=== PATIENT | female | born 1950 | race Caucasian/White ===

== ENCOUNTER → 2018-08-24 10:54 | Outpatient (CLI) | payer MEDICARE, OTHER, SELFPAY ==
--- NOTE | 2018-08-24 | DI.MG.S_ITS ---
BILATERAL DIGITAL SCREENING MAMMOGRAM 3D/2D WITH CAD: 08/24/2018 CLINICAL: Routine screening. Personal history of left breast cancer. Comparison is made to exams dated: 07/30/2017 mammogram, 07/28/2016 mammogram, and 07/26/2015 mammogram - [facility]. The tissue of both breasts is heterogeneously dense. This may lower the sensitivity of mammography. Current study was also evaluated with a Computer Aided Detection (CAD) system. There are benign post operative findings in the left breast. There also are benign biopsy clips in the left breast. No significant masses, calcifications, or other findings are seen in either breast. There has been no significant interval change. IMPRESSION: There is no mammographic evidence of malignancy. A 1 year screening mammogram is recommended. This exam was interpreted at Station ID: [id number]. NOTE: For mammograms, a report in lay terms will be sent to the patient. Approximately 15% of breast malignancies will not be visualized mammographically. In the management of a palpable breast mass, a negative mammogram must not discourage biopsy of a clinically suspicious lesion. Electronically Signed By: Kymberly reyes/scout:08/24/2018 11:18:55 letter sent: Normal Exam ACR BI-RADS Category 2: Benign Finding(s) 3342F
== END ==
PROVIDERS: Family Provider Specialist; PCP Internal Medicine; Visit Provider Internal Medicine
DX: Z12.31 Encounter for screening mammogram for malignant neoplasm of breast (principal); Z85.3 Personal history of malignant neoplasm of breast
CPT/HCPCS: 77063; 77067

== ENCOUNTER → 2018-08-31 12:56 | Outpatient (CLI) | payer MEDICARE, OTHER, SELFPAY | PROVIDERS: Family Provider Specialist; PCP Internal Medicine; Visit Provider Internal Medicine | DX: M81.0 Age-related osteoporosis without current pathological fracture (principal); Z82.62 Family history of osteoporosis; Z78.0 Asymptomatic menopausal state; Z85.3 Personal history of malignant neoplasm of breast | CPT/HCPCS: 77080 ==

== ENCOUNTER 2018-09-05 10:30 | Outpatient (RCR) | payer MEDICARE, OTHER, SELFPAY ==
--- NOTE | 2018-05-19 16:35 | PT.OIE ---
Current Diagnoses Muscle weakness (generalized) (05/19/18) Cystocele, unspecified (05/19/18) Other reduced mobility (05/19/18) Provider Visit Care Team Role Provider Type Dez Hill MD Primary Care Provider Physician Specialty: Internal Medicine Address: [address] [place] [address] Email: Nakita Delatorre MD Attending Provider Physician Family Provider Specialty: FOREST ECOLOGIST Address: [address] [place] [id number] Email: [email or web address] Physical Therapy Initial Evaluation PT-OP-A Visit Information Start: 05/19/18 07:57 Freq: Status: Active Protocol: Document 05/19/18 09:45 LRN (Rec: 05/19/18 10:48 LRN [id number]) Out-Patient Physical Therapy Visit Information Visit Information Visit Type Initial Evaluation Visit Start Time 09:45 Visit Stop Time 10:45 Total Visit Minutes 60 Visit Number 1 Number of RN PROGRESSIVE CARE UNIT Visits 0 Evaluation Information Evaluation Date 05/19/18 PT-OP-B Current Condition Start: 05/19/18 07:57 Freq: Status: Active Protocol: Document 05/19/18 09:45 LRN (Rec: 05/19/18 10:48 LRN [id number]) Current Condition History of Current Condition Onset Date 4 months ago Current Complaints Something protruding from her pelvic floor. History of Current Condition Pt reports feeling something protruding from her pelvic floor in standing and that she could actually see something protruding after undergoing a hysterectomy in 2006. She states he had a bladder lift with her hysterectomy. She always wears a pad and did notice a little leaking after the of her son in 1980. Pt is 1, Parity 1. She currently wears a pad daily with one change per day unless she totally wets herself, which is not often. She is active and hikes for exercise quite a bit. Prior Treatments and Tests None Future Testing and Treatments Planned None Developmental History Developmental History Goal is to strengthen the pelvic floor. Goal is to prevent wetting outer clothing outside of home . Treatment Goals Patient/Caregiver Goals Goal is to strength muscles. 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 Has grandson she occasionally sees and still lifts. PT-OP-I Pelvic Floor Start: 05/19/18 07:57 Freq: Status: Active Protocol: Document 05/19/18 09:45 LRN (Rec: 05/19/18 15:46 LRN [id number]) Pelvic Floor Assessment Urine Pelvic Floor Surgery No Urinary Symptoms Urge Sensation Prolapse Falling Out Feeling/Heavy Other Urinary Symptoms Urinary leakage small to large . Leakage Size Small Leakage Cause Cough Exercise Sneeze Urge Leaks Per Day 5 Voiding Frequency 8-9 times per day Nocturia 1-2 times per night Pads Used In 24 Hours 1 Urine Pad Type Panty Liner Bowel Bowel Surgery No Other Bowel Symptoms Sometimes constipation Pelvic Clock Pelvic Clock 12-3 Hypertonic Prolapse Cystocele Grade 3 Prolapse Comments Check in standing and supine Perineal Descent Resting Present Bearing Present PT-OP-J Posture/Palpation/Skin Start: 05/19/18 07:57 Freq: Status: Active Protocol: Document 05/19/18 09:45 LRN (Rec: 05/19/18 15:46 LRN [id number]) Posture Evaluation Position Standing Evaluation View All positions Head/C-Spine Posture Forward Head L-Spine Posture Flattened Flexible Scoliosis on (L) Shoulder Posture (L) Elevated Pelvis Posture (L) Iliac Crest Superior (L) PSIS Posterior Skin Assessment Other Assessments Skin Assessment Comments Mild redness around external perineum PT-OP-K Range of Motion Start: 05/19/18 07:57 Freq: Status: Active Protocol: Document 05/19/18 09:45 LRN (Rec: 05/19/18 15:46 LRN [id number]) Hip Goniometric Range of Motion Hip Measured in Degrees Right Passive Hip ROM WFL Yes Testing Position Supine Extension 10 Abduction 30 Internal Rotation 65 External Rotation 55 Left Passive Hip ROM WFL Yes Testing Position Supine Extension 8 Abduction 25 Internal Rotation 52 External Rotation 65 PT-OP-M Strength Start: 05/19/18 07:57 Freq: Status: Active Protocol: Document 05/19/18 09:45 LRN (Rec: 05/19/18 15:46 LRN [id number]) Hip Strength Hip Manual Muscle Testing Right Flexion (L2) 3 Fair Extension (S1) 3 Fair Abduction 4 Good Adduction 5 Normal External Rotation 5 Normal Internal Rotation 4 Good Left Flexion (L2) 3 Fair Extension (S1) 3 Fair Abduction 5 Normal Adduction 3 Fair External Rotation 5 Normal Internal Rotation 4 Good Knee Strength Knee Manual Muscle Testing Right Flexion (S2) 5 Normal Extension (L3) 4 Good Left Flexion (S2) 4 Good Extension (L3) 5 Normal PT-OP-Q Treatments Start: 05/19/18 07:57 Freq: Status: Active Protocol: Document 05/19/18 09:45 LRN (Rec: 05/19/18 15:51 LRN [id number]) Therapeutic Exercises Supine Exercises 2 Supine Exercise Name Kegels Reps/Minutes 6' Comments Quick Flicks and Long holds 1 Supine Exercise Name Diaphragmatic Breathing Reps/Minutes 2' Self-Care/Home Management Treatment Education Patient Education Home Exercise Program Activities Self-Care/Home Management Activities Pt I/S in Bladder Diary, Kegels, and Urinary Delay technique. PT-OP-T Assessment and Plan Start: 05/19/18 07:57 Freq: Status: Active Protocol: Document 05/19/18 09:45 LRN (Rec: 05/19/18 10:48 LRN [id number]) Physical Therapy Assessment Rehab Potential Rehabilitation Potential Fair Evaluation Complexity Number of Personal Factors/Comorbidities 1-2 Number of Body Systems Impaired 3 Clinical Presentation at Evaluation Evolving Impairments Impairments Activity Tolerance Posture ROM Strength Other Impairments Pelvic Floor (PF) Weakness. Pelvic Floor lack of endurance . Lack of education for self care. Other Concerns Age Related Concerns Osteoporosis. Breast Cancer History. Hernia History. Barriers to Rehabilitation Age Goals Four Impairment PF weakness Retirement Goal (LTG) Pt will demonstrate increase PF strength with lessening the pt's awareness of her bladder protruding from the PF in supine and allow the pt to prevent urinary leakage with a strong urge. Three Impairment Pt unable to maintain continence while walking to the bathroom. Short Term Goal (STG) Pt will be able to use the urinary delay technique to allow pt to walking to the bathroom without leaking. STG Duration 05/30/18 Retirement Goal (LTG) Pt will demonstrate improved PF endurance by hold a PF contraction 10 sec's prior to fatigue to prevent urinary leakage with an urge sensation . LTG Duration 07/26/18 Two Impairment Pt lacks knowledge of proper dietary habits to minimize urgency Hotel Services Sales Representative Goal (LTG) Pt will be educated in Bladder retraining LTG Duration 07/26/18 One Impairment Pt lacks self correction program. Retirement Goal (LTG) Pt will be independent on a HEP for self care ex's. LTG Duration 07/26/18 Assessment Summary Assessment Pt presents with mixed urinary incontinence and a Grade III bladder prolapse as noted in standing. She will benefit from skilled physical therapy for improving core and hip stability and to normalize symmetry of hip mobility. Physical Therapy Plan Frequency and Duration Plan of Care Start Date 05/19/18 Plan of Care End Date 07/26/18 Therapeutic Interventions Therapeutic Interventions Home Exercise Program Joint Mobilizations Manual Therapy Neuromuscular Re-education Patient/Caregiver Education Self-Care/Home Management Soft Tissue Mobilization Therapeutic Exercises Next Visit Focus/Plan Next Note Type Treatment Note Next Visit Plan Perform EMG Biofeedback assessment, review bladder diary and discuss self care ( diet, PF skin care, clothing), try E-stim of the PF to improve PF awareness, review Kegel ex's and progress PF strengthening with LE Roll in/ outs and progress HEP with hip stretches (ext L>R, AB L>R, ER right, IR left) and strengthen hips (flex, ext, AB right, AD left, IR right).
--- NOTE | 2018-05-19 16:35 | PT.OPPOC ---
Current Diagnoses Muscle weakness (generalized) (05/19/18) Cystocele, unspecified (05/19/18) Other reduced mobility (05/19/18) Provider Visit Care Team Role Provider Type Dez Hill MD Primary Care Provider Physician Specialty: Internal Medicine Address: [address] [place], [place] [id number] Email: Nakita Delatorre MD Attending Provider Physician Family Provider Specialty: METAL CONTROL COORDINATOR Address: [address] [place] [address], [id number] Email: [email or web address] Plan Of Care PT-OP-T Assessment and Plan Start: 05/19/18 07:57 Freq: Status: Active Protocol: Document 05/19/18 09:45 LRN (Rec: 05/19/18 10:48 LRN [id number]) Physical Therapy Assessment Rehab Potential Rehabilitation Potential Fair Evaluation Complexity Number of Personal Factors/Comorbidities 1-2 Number of Body Systems Impaired 3 Clinical Presentation at Evaluation Evolving Impairments Impairments Activity Tolerance Posture ROM Strength Other Impairments Pelvic Floor (PF) Weakness. Pelvic Floor lack of endurance . Lack of education for self care. Other Concerns Age Related Concerns Osteoporosis. Breast Cancer History. Hernia History. Barriers to Rehabilitation Age Goals Four Impairment PF weakness Fpc Goal (LTG) Pt will demonstrate increase PF strength with lessening the pt's awareness of her bladder protruding from the PF in supine and allow the pt to prevent urinary leakage with a strong urge. Three Impairment Pt unable to maintain continence while walking to the bathroom. Short Term Goal (STG) Pt will be able to use the urinary delay technique to allow pt to walking to the bathroom without leaking. STG Duration 05/30/18 Furnace Puncher Goal (LTG) Pt will demonstrate improved PF endurance by hold a PF contraction 10 sec's prior to fatigue to prevent urinary leakage with an urge sensation . LTG Duration 07/26/18 Two Impairment Pt lacks knowledge of proper dietary habits to minimize urgency Fpc Goal (LTG) Pt will be educated in Bladder retraining LTG Duration 07/26/18 One Impairment Pt lacks self penitentiary program. Furnace Puncher Goal (LTG) Pt will be independent on a HEP for self care ex's. LTG Duration 07/26/18 Assessment Summary Assessment Pt presents with mixed urinary incontinence and a Grade III bladder prolapse as noted in standing. She will benefit from skilled physical therapy for improving core and hip stability and to normalize symmetry of hip mobility. Physical Therapy Plan Frequency and Duration Plan of Care Start Date 05/19/18 Plan of Care End Date 07/26/18 Therapeutic Interventions Therapeutic Interventions Home Exercise Program Joint Mobilizations Manual Therapy Neuromuscular Re-education Patient/Caregiver Education Self-Care/Home Management Soft Tissue Mobilization Therapeutic Exercises Next Visit Focus/Plan Next Note Type Treatment Note Next Visit Plan Perform EMG Biofeedback assessment, review bladder diary and discuss self care ( diet, PF skin care, clothing), try E-stim of the PF to improve PF awareness, review Kegel ex's and progress PF strengthening with LE Roll in/ outs and progress HEP with hip stretches (ext L>R, AB L>R, ER right, IR left) and strengthen hips (flex, ext, AB right, AD left, IR right). Plan of Care Dates Plan of Care Start Date 05/19/18 Plan of Care End Date 07/26/18 Please Sign and Return: I have reviewed this Plan of Care and certify that the skilled therapy services above are required to meet the patient?s needs. Physician Signature Date Printed Name and Credentials Clinical Instructor Signature Printed Name and Credentials
--- NOTE | 2018-05-24 13:32 | PT.OTN ---
Current Diagnoses Cystocele, unspecified (05/24/18) Physical Therapy Treatment Note PT-OP-A Visit Information Start: 05/19/18 07:57 Freq: Status: Active Protocol: Document 05/24/18 11:17 LRN (Rec: 05/24/18 13:11 LRN [id number]) Out-Patient Physical Therapy Visit Information Visit Information Visit Type Treatment Note Visit Start Time 11:17 Visit Stop Time 12:12 Total Visit Minutes 55 Visit Number 2 Number of ROLL FINISHER Visits 0 Evaluation Information Evaluation Date 05/19/18 PT-OP-B Current Condition Start: 05/19/18 07:57 Freq: Status: Active Protocol: Document 05/19/18 09:45 LRN (Rec: 05/19/18 10:48 LRN [id number]) Current Condition History of Current Condition Onset Date 4 months ago Current Complaints Something protruding from her pelvic floor. History of Current Condition Pt reports feeling something protruding from her pelvic floor in standing and that she could actually see something protruding after undergoing a hysterectomy in 2006. She states he had a bladder lift with her hysterectomy. She always wears a pad and did notice a little leaking after the of her son in 1980. Pt is 1, Parity 1. She currently wears a pad daily with one change per day unless she totally wets herself, which is not often. She is active and hikes for exercise quite a bit. Prior Treatments and Tests None Future Testing and Treatments Planned None Developmental History Developmental History Goal is to strengthen the pelvic floor. Goal is to prevent wetting outer clothing outside of home . Treatment Goals Patient/Caregiver Goals Goal is to strength muscles. 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 Has grandson she occasionally sees and still lifts. PT-OP-C Subjective Start: 05/19/18 07:57 Freq: Status: Active Protocol: Document 05/24/18 11:17 LRN (Rec: 05/24/18 13:11 LRN [id number]) OP-PT Subjective Patient Comments Patient Comments Has been consistent with HEP. Now aware of needing to drink more fluids. PT-OP-I Pelvic Floor Start: 05/19/18 07:57 Freq: Status: Active Protocol: Document 05/24/18 11:17 LRN (Rec: 05/24/18 13:11 LRN [id number]) Pelvic Floor Assessment Prolapse Cystocele Grade 3 SEMG (uV) Baseline 2.1 Quick Contraction 8.0 10 Second Contraction 7.0 Stability of Hold Poor/Slow SEMG Stability of Rest Good Contraction Ability Manual Muscle Testing Left 3 Manual Muscle Testing Right 0 Manual Muscle Testing Anterior 3 Manual Muscle Testing Posterior 3 Muscle Endurance (Seconds) 1 PT-OP-J Posture/Palpation/Skin Start: 05/19/18 07:57 Freq: Status: Active Protocol: Document 05/19/18 09:45 LRN (Rec: 05/19/18 15:46 LRN [id number]) Posture Evaluation Position Standing Evaluation View All positions Head/C-Spine Posture Forward Head L-Spine Posture Flattened Flexible Scoliosis on (L) Shoulder Posture (L) Elevated Pelvis Posture (L) Iliac Crest Superior (L) PSIS Posterior Skin Assessment Other Assessments Skin Assessment Comments Mild redness around external perineum PT-OP-K Range of Motion Start: 05/19/18 07:57 Freq: Status: Active Protocol: Document 05/19/18 09:45 LRN (Rec: 05/19/18 15:46 LRN [id number]) Hip Goniometric Range of Motion Hip Measured in Degrees Right Passive Hip ROM WFL Yes Testing Position Supine Extension 10 Abduction 30 Internal Rotation 65 External Rotation 55 Left Passive Hip ROM WFL Yes Testing Position Supine Extension 8 Abduction 25 Internal Rotation 52 External Rotation 65 PT-OP-M Strength Start: 05/19/18 07:57 Freq: Status: Active Protocol: Document 05/19/18 09:45 LRN (Rec: 05/19/18 15:46 LRN [id number]) Hip Strength Hip Manual Muscle Testing Right Flexion (L2) 3 Fair Extension (S1) 3 Fair Abduction 4 Good Adduction 5 Normal External Rotation 5 Normal Internal Rotation 4 Good Left Flexion (L2) 3 Fair Extension (S1) 3 Fair Abduction 5 Normal Adduction 3 Fair External Rotation 5 Normal Internal Rotation 4 Good Knee Strength Knee Manual Muscle Testing Right Flexion (S2) 5 Normal Extension (L3) 4 Good Left Flexion (S2) 4 Good Extension (L3) 5 Normal PT-OP-Q Treatments Start: 05/19/18 07:57 Freq: Status: Active Protocol: Document 05/24/18 11:17 LRN (Rec: 05/24/18 13:11 LRN [id number]) Therapeutic Exercises Supine Exercises 4 Supine Exercise Name Fig 4 stretch Side right Reps/Minutes 2' 3 Supine Exercise Name LE roll in/outs, LE roll in/ outs with deep breathing Reps/Minutes 10 2 Supine Exercise Name Kegels Reps/Minutes 0 Comments Quick Flicks and Long holds 1 Supine Exercise Name Diaphragmatic Breathing Reps/Minutes 2' Neuro Re-Education Treatment Other Activities 1 Details PF awareness with EMG vaginal electrode Reps/Duration 20' Comments Pt holding breath for greater PF contraction. Self-Care/Home Management Treatment Education Patient Education Home Exercise Program Activities Self-Care/Home Management Activities Reviewed and discussed bladder diary and pt educated/ discussed dietary bladder irritants. PT-OP-T Assessment and Plan Start: 05/19/18 07:57 Freq: Status: Active Protocol: Document 05/24/18 11:17 LRN (Rec: 05/24/18 13:11 LRN [id number]) Physical Therapy Assessment Impairments Impairments Activity Tolerance Posture ROM Strength Other Impairments Pelvic Floor (PF) Weakness. Pelvic Floor lack of endurance . Lack of education for self care. Other Concerns Age Related Concerns Osteoporosis. Breast Cancer History. Hernia History. Barriers to Rehabilitation Age Goals Four Impairment PF weakness Group Home Goal (LTG) Pt will demonstrate increase PF strength with lessening the pt's awareness of her bladder protruding from the PF in supine and allow the pt to prevent urinary leakage with a strong urge. Three Impairment Pt unable to maintain continence while walking to the bathroom. Short Term Goal (STG) Pt will be able to use the urinary delay technique to allow pt to walking to the bathroom without leaking. STG Duration 05/30/18 Group Home Goal (LTG) Pt will demonstrate improved PF endurance by hold a PF contraction 10 sec's prior to fatigue to prevent urinary leakage with an urge sensation . LTG Duration 07/26/18 Two Impairment Pt lacks knowledge of proper dietary habits to minimize urgency Metal Room Dental Technician Goal (LTG) Pt will be educated in Bladder retraining LTG Duration 07/26/18. 05/24/18: GOAL PARTIALLY MET One Impairment Pt lacks self half-way program. Metal Room Dental Technician Goal (LTG) Pt will be independent on a HEP for self care ex's. LTG Duration 07/26/18 Assessment Summary Assessment Pt with Grade III bladder prolapse as noted in standing. She has been educated in Urge Deference technique as part of bladder retraining and handout of bladder irritants. She is limited in hip rotational mobility; therefore LE roll in/outs was difficult . Improve core & hip mobility . Physical Therapy Plan Frequency and Duration Frequency of Treatment 1x/Week Plan of Care Start Date 05/19/18 Plan of Care End Date 07/26/18 Next Visit Focus/Plan Next Visit Plan Discuss skin care, clothing, try E-stim of PF to improve PF awareness, Continue PF strengthening with EMG biofeedback with wedge. Progress HEP with hip stretches (ext L>R, AB L>R, ER right, IR left) and strengthen hips (flex, ext, AB right, AD left, IR right).
--- NOTE | 2018-06-03 11:51 | PT.OTN ---
Current Diagnoses Cystocele, unspecified (06/03/18) Physical Therapy Treatment Note PT-OP-A Visit Information Start: 05/19/18 07:57 Freq: Status: Active Protocol: Document 06/03/18 10:33 LRN (Rec: 06/03/18 11:50 LRN [id number]) Out-Patient Physical Therapy Visit Information Visit Information Visit Type Treatment Note Visit Start Time 10:36 Visit Stop Time 11:26 Total Visit Minutes 50 Visit Number 3 Number of TURRET LATHE TENDER Visits 0 Evaluation Information Evaluation Date 05/19/18 PT-OP-B Current Condition Start: 05/19/18 07:57 Freq: Status: Active Protocol: Document 05/19/18 09:45 LRN (Rec: 05/19/18 10:48 LRN [id number]) Current Condition History of Current Condition Onset Date 4 months ago Current Complaints Something protruding from her pelvic floor. History of Current Condition Pt reports feeling something protruding from her pelvic floor in standing and that she could actually see something protruding after undergoing a hysterectomy in 2006. She states he had a bladder lift with her hysterectomy. She always wears a pad and did notice a little leaking after the of her son in 1980. Pt is 1, Parity 1. She currently wears a pad daily with one change per day unless she totally wets herself, which is not often. She is active and hikes for exercise quite a bit. Prior Treatments and Tests None Future Testing and Treatments Planned None Developmental History Developmental History Goal is to strengthen the pelvic floor. Goal is to prevent wetting outer clothing outside of home . Treatment Goals Patient/Caregiver Goals Goal is to strength muscles. 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 Has grandson she occasionally sees and still lifts. PT-OP-C Subjective Start: 05/19/18 07:57 Freq: Status: Active Protocol: Document 06/03/18 10:33 LRN (Rec: 06/03/18 11:50 LRN [id number]) OP-PT Subjective Patient Comments Patient Comments Lost it twice last week. Once soiled jeans, once soiled pad. PT-OP-I Pelvic Floor Start: 05/19/18 07:57 Freq: Status: Active Protocol: Document 05/24/18 11:17 LRN (Rec: 05/24/18 13:11 LRN [id number]) Pelvic Floor Assessment Prolapse Cystocele Grade 3 SEMG (uV) Baseline 2.1 Quick Contraction 8.0 10 Second Contraction 7.0 Stability of Hold Poor/Slow SEMG Stability of Rest Good Contraction Ability Manual Muscle Testing Left 3 Manual Muscle Testing Right 0 Manual Muscle Testing Anterior 3 Manual Muscle Testing Posterior 3 Muscle Endurance (Seconds) 1 PT-OP-J Posture/Palpation/Skin Start: 05/19/18 07:57 Freq: Status: Active Protocol: Document 05/19/18 09:45 LRN (Rec: 05/19/18 15:46 LRN [id number]) Posture Evaluation Position Standing Evaluation View All positions Head/C-Spine Posture Forward Head L-Spine Posture Flattened Flexible Scoliosis on (L) Shoulder Posture (L) Elevated Pelvis Posture (L) Iliac Crest Superior (L) PSIS Posterior Skin Assessment Other Assessments Skin Assessment Comments Mild redness around external perineum PT-OP-K Range of Motion Start: 05/19/18 07:57 Freq: Status: Active Protocol: Document 05/19/18 09:45 LRN (Rec: 05/19/18 15:46 LRN [id number]) Hip Goniometric Range of Motion Hip Measured in Degrees Right Passive Hip ROM WFL Yes Testing Position Supine Extension 10 Abduction 30 Internal Rotation 65 External Rotation 55 Left Passive Hip ROM WFL Yes Testing Position Supine Extension 8 Abduction 25 Internal Rotation 52 External Rotation 65 PT-OP-M Strength Start: 05/19/18 07:57 Freq: Status: Active Protocol: Document 05/19/18 09:45 LRN (Rec: 05/19/18 15:46 LRN [id number]) Hip Strength Hip Manual Muscle Testing Right Flexion (L2) 3 Fair Extension (S1) 3 Fair Abduction 4 Good Adduction 5 Normal External Rotation 5 Normal Internal Rotation 4 Good Left Flexion (L2) 3 Fair Extension (S1) 3 Fair Abduction 5 Normal Adduction 3 Fair External Rotation 5 Normal Internal Rotation 4 Good Knee Strength Knee Manual Muscle Testing Right Flexion (S2) 5 Normal Extension (L3) 4 Good Left Flexion (S2) 4 Good Extension (L3) 5 Normal PT-OP-Q Treatments Start: 05/19/18 07:57 Freq: Status: Active Protocol: Document 06/03/18 10:33 LRN (Rec: 06/03/18 11:50 LRN [id number]) Therapeutic Exercises Supine Exercises Hip IR stretch Supine Exercise Name Piriformis Side left Reps/Minutes 2' Comments L>R Hip flexor stretch Supine Exercise Name At side and end of table Side left Reps/Minutes 3' Comments L>R 4 Supine Exercise Name Fig 4 stretch - sitting Side right Reps/Minutes 2' Comments R>L 3 Supine Exercise Name Resisted LE roll in/outs with deep breathing Side bilateral Resistance Lev 2 Equipment Used TBand Reps/Minutes 10 Comments Extra time taken for training/ coordinating TBand and ball 2 Supine Exercise Name Kegels Reps/Minutes 0 Comments Quick Flicks and Long holds Neuro Re-Education Treatment Movement Re-Education Movement Re-education Activities PF awareness and strengthening using E-Stim. 10:20; 50pps, intensity 12. Pt on Wedge. Self-Care/Home Management Treatment Education Patient Education Home Exercise Program Other Education HEP of hip stretches reviewed and handout issued. Activities Self-Care/Home Management Activities Issued, reviewed and discussed bladder diary and discussed bladder retraining frequency and concepts PT-OP-T Assessment and Plan Start: 05/19/18 07:57 Freq: Status: Active Protocol: Document 06/03/18 10:33 LRN (Rec: 06/03/18 11:50 LRN [id number]) Physical Therapy Assessment Impairments Impairments Activity Tolerance Posture ROM Strength Other Impairments Pelvic Floor (PF) Weakness. Pelvic Floor lack of endurance . Lack of education for self care. Other Concerns Age Related Concerns Osteoporosis. Breast Cancer History. Hernia History. Barriers to Rehabilitation Age Goals Four Impairment PF weakness Wax Pot Tender Goal (LTG) Pt will demonstrate increase PF strength with lessening the pt's awareness of her bladder protruding from the PF in supine and allow the pt to prevent urinary leakage with a strong urge. Three Impairment Pt unable to maintain continence while walking to the bathroom. Short Term Goal (STG) Pt will be able to use the urinary delay technique to allow pt to walking to the bathroom without leaking. STG Duration 05/30/18 Wax Pot Tender Goal (LTG) Pt will demonstrate improved PF endurance by hold a PF contraction 10 sec's prior to fatigue to prevent urinary leakage with an urge sensation . LTG Duration 07/26/18 Two Impairment Pt lacks knowledge of proper dietary habits to minimize urgency Wax Pot Tender Goal (LTG) Pt will be educated in Bladder retraining LTG Duration 07/26/18. 06/03/18: GOAL MET One Impairment Pt lacks self long-term program. Intermediate Goal (LTG) Pt will be independent on a HEP for self care ex's. LTG Duration 07/26/18 Assessment Summary Assessment Pt with Grade III Bladder prolapse. Pt appears to have a good understanding of new hip stretches. Needs to improve core & hip mobility. Physical Therapy Plan Frequency and Duration Frequency of Treatment 1x/Week Plan of Care Start Date 05/19/18 Plan of Care End Date 07/26/18 Therapeutic Interventions Therapeutic Interventions Home Exercise Program Joint Mobilizations Manual Therapy Neuromuscular Re-education Patient/Caregiver Education Self-Care/Home Management Soft Tissue Mobilization Therapeutic Exercises Next Visit Focus/Plan Next Note Type Treatment Note Next Visit Plan Review HEP stretches and add strengthening ex's. Discuss skin care, clothing. Continue PF strengthening with EMG biofeedback with wedge. Progress HEP with hip stretches (AB L>R) and strengthen hips (flex, ext, AB right, AD left, IR right).
--- NOTE | 2018-06-07 14:37 | PT.OTN ---
Current Diagnoses Cystocele, unspecified (06/07/18) Physical Therapy Treatment Note PT-OP-A Visit Information Start: 05/19/18 07:57 Freq: Status: Active Protocol: Document 06/07/18 08:15 LRN (Rec: 06/07/18 09:01 LRN [id number]) Out-Patient Physical Therapy Visit Information Visit Information Visit Type Treatment Note Visit Start Time 08:15 Visit Stop Time 09:00 Total Visit Minutes 45 Visit Number 4 Number of PUBLIC AFFAIRS DIRECTOR Visits 0 Evaluation Information Evaluation Date 05/19/18 PT-OP-B Current Condition Start: 05/19/18 07:57 Freq: Status: Active Protocol: Document 05/19/18 09:45 LRN (Rec: 05/19/18 10:48 LRN [id number]) Current Condition History of Current Condition Onset Date 4 months ago Current Complaints Something protruding from her pelvic floor. History of Current Condition Pt reports feeling something protruding from her pelvic floor in standing and that she could actually see something protruding after undergoing a hysterectomy in 2006. She states he had a bladder lift with her hysterectomy. She always wears a pad and did notice a little leaking after the of her son in 1980. Pt is 1, Parity 1. She currently wears a pad daily with one change per day unless she totally wets herself, which is not often. She is active and hikes for exercise quite a bit. Prior Treatments and Tests None Future Testing and Treatments Planned None Developmental History Developmental History Goal is to strengthen the pelvic floor. Goal is to prevent wetting outer clothing outside of home . Treatment Goals Patient/Caregiver Goals Goal is to strength muscles. 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 Has grandson she occasionally sees and still lifts. PT-OP-C Subjective Start: 05/19/18 07:57 Freq: Status: Active Protocol: Document 06/07/18 08:15 LRN (Rec: 06/07/18 09:01 LRN [id number]) OP-PT Subjective Patient Comments Patient Comments Trying to change going to bathroom too often. PT-OP-I Pelvic Floor Start: 05/19/18 07:57 Freq: Status: Active Protocol: Document 05/24/18 11:17 LRN (Rec: 05/24/18 13:11 LRN [id number]) Pelvic Floor Assessment Prolapse Cystocele Grade 3 SEMG (uV) Baseline 2.1 Quick Contraction 8.0 10 Second Contraction 7.0 Stability of Hold Poor/Slow SEMG Stability of Rest Good Contraction Ability Manual Muscle Testing Left 3 Manual Muscle Testing Right 0 Manual Muscle Testing Anterior 3 Manual Muscle Testing Posterior 3 Muscle Endurance (Seconds) 1 PT-OP-J Posture/Palpation/Skin Start: 05/19/18 07:57 Freq: Status: Active Protocol: Document 05/19/18 09:45 LRN (Rec: 05/19/18 15:46 LRN [id number]) Posture Evaluation Position Standing Evaluation View All positions Head/C-Spine Posture Forward Head L-Spine Posture Flattened Flexible Scoliosis on (L) Shoulder Posture (L) Elevated Pelvis Posture (L) Iliac Crest Superior (L) PSIS Posterior Skin Assessment Other Assessments Skin Assessment Comments Mild redness around external perineum PT-OP-K Range of Motion Start: 05/19/18 07:57 Freq: Status: Active Protocol: Document 05/19/18 09:45 LRN (Rec: 05/19/18 15:46 LRN [id number]) Hip Goniometric Range of Motion Hip Measured in Degrees Right Passive Hip ROM WFL Yes Testing Position Supine Extension 10 Abduction 30 Internal Rotation 65 External Rotation 55 Left Passive Hip ROM WFL Yes Testing Position Supine Extension 8 Abduction 25 Internal Rotation 52 External Rotation 65 PT-OP-M Strength Start: 05/19/18 07:57 Freq: Status: Active Protocol: Document 05/19/18 09:45 LRN (Rec: 05/19/18 15:46 LRN [id number]) Hip Strength Hip Manual Muscle Testing Right Flexion (L2) 3 Fair Extension (S1) 3 Fair Abduction 4 Good Adduction 5 Normal External Rotation 5 Normal Internal Rotation 4 Good Left Flexion (L2) 3 Fair Extension (S1) 3 Fair Abduction 5 Normal Adduction 3 Fair External Rotation 5 Normal Internal Rotation 4 Good Knee Strength Knee Manual Muscle Testing Right Flexion (S2) 5 Normal Extension (L3) 4 Good Left Flexion (S2) 4 Good Extension (L3) 5 Normal PT-OP-Q Treatments Start: 05/19/18 07:57 Freq: Status: Active Protocol: Document 06/07/18 08:15 LRN (Rec: 06/07/18 09:01 LRN [id number]) Therapeutic Exercises Supine Exercises Stretch to hip AD's Side bilateral Reps/Minutes 2' Comments L>R Hip IR stretch Supine Exercise Name Piriformis Side left Reps/Minutes 2' Comments L>R Hip flexor stretch Supine Exercise Name At side and end of table Side left Reps/Minutes 3' Comments L>R 4 Supine Exercise Name Fig 4 stretch - sitting Side right Reps/Minutes 2' Comments R>L 3 Supine Exercise Name Sitting Resisted LE roll in/ outs w/deep breathing Side bilateral Resistance Lev 1 Equipment Used TBand Reps/Minutes 10 Comments Extra time taken for training/ coordinating TBand and ball 2 Supine Exercise Name Kegels Reps/Minutes 0 Comments Quick Flicks and Long holds Sidelying Exercises Hip AD Side left Reps/Minutes 10, 5 Hip AB Side right Reps/Minutes 10, 5 Neuro Re-Education Treatment Other Activities 1 Details PF long holds with Biofeedback Reps/Duration 10' Comments Pt practiced arik 75% of max and holding 10 sec's Self-Care/Home Management Treatment Education Patient Education Home Exercise Program Other Education Skin care/use of pads and appropriate clothing type ( loose vs tight). Activities Self-Care/Home Management Activities HEP of Stretch to hip Adductors (L>R) and strengthening of hip AB(R)/AD( L). PT-OP-T Assessment and Plan Start: 05/19/18 07:57 Freq: Status: Active Protocol: Document 06/07/18 08:15 LRN (Rec: 06/07/18 09:01 LRN [id number]) Physical Therapy Assessment Impairments Impairments Activity Tolerance Posture ROM Strength Other Impairments Pelvic Floor (PF) Weakness. Pelvic Floor lack of endurance . Lack of education for self care. Other Concerns Age Related Concerns Osteoporosis. Breast Cancer History. Hernia History. Barriers to Rehabilitation Age Goals Four Impairment PF weakness Global Marketing Intern Goal (LTG) Pt will demonstrate increase PF strength with lessening the pt's awareness of her bladder protruding from the PF in supine and allow the pt to prevent urinary leakage with a strong urge. Three Impairment Pt unable to maintain continence while walking to the bathroom. Short Term Goal (STG) Pt will be able to use the urinary delay technique to allow pt to walking to the bathroom without leaking. STG Duration 05/30/18 Global Marketing Intern Goal (LTG) Pt will demonstrate improved PF endurance by hold a PF contraction 10 sec's prior to fatigue to prevent urinary leakage with an urge sensation . LTG Duration 07/26/18 Two Impairment Pt lacks knowledge of proper dietary habits to minimize urgency Shelter Goal (LTG) Pt will be educated in Bladder retraining LTG Duration 07/26/18. 06/03/18: GOAL MET One Impairment Pt lacks self correction program. Global Marketing Intern Goal (LTG) Pt will be independent on a HEP for self care ex's. LTG Duration 07/26/18 Assessment Summary Assessment Pt with Grade III Bladder prolapse. Pt appears to have a good understanding of new hip stretches. Needs to improve PF strength. Needs core strengthening/ROM & hip mobility. Physical Therapy Plan Frequency and Duration Frequency of Treatment 1x/Week Plan of Care Start Date 05/19/18 Plan of Care End Date 07/26/18 Next Visit Focus/Plan Next Note Type Treatment Note Next Visit Plan Review HEP stretches and add core/PF strengthening ex's. Continue PF strengthening with EMG biofeedback and stim with wedge. Progress HEP with hip strengthen hips (flex, ext, & IR right).
--- NOTE | 2018-06-21 13:29 | PT.OTN ---
Current Diagnoses Cystocele, unspecified (06/21/18) Physical Therapy Treatment Note PT-OP-A Visit Information Start: 05/19/18 07:57 Freq: Status: Active Protocol: Document 06/21/18 08:18 LRN (Rec: 06/21/18 09:03 LRN [id number]) Out-Patient Physical Therapy Visit Information Visit Information Visit Type Treatment Note Visit Start Time 08:18 Visit Stop Time 09:03 Total Visit Minutes 45 Visit Number 5 Number of TOUCH UP EDGER Visits 0 Evaluation Information Evaluation Date 05/19/18 PT-OP-B Current Condition Start: 05/19/18 07:57 Freq: Status: Active Protocol: Document 05/19/18 09:45 LRN (Rec: 05/19/18 10:48 LRN [id number]) Current Condition History of Current Condition Onset Date 4 months ago Current Complaints Something protruding from her pelvic floor. History of Current Condition Pt reports feeling something protruding from her pelvic floor in standing and that she could actually see something protruding after undergoing a hysterectomy in 2006. She states he had a bladder lift with her hysterectomy. She always wears a pad and did notice a little leaking after the of her son in 1980. Pt is 1, Parity 1. She currently wears a pad daily with one change per day unless she totally wets herself, which is not often. She is active and hikes for exercise quite a bit. Prior Treatments and Tests None Future Testing and Treatments Planned None Developmental History Developmental History Goal is to strengthen the pelvic floor. Goal is to prevent wetting outer clothing outside of home . Treatment Goals Patient/Caregiver Goals Goal is to strength muscles. 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 Has grandson she occasionally sees and still lifts. PT-OP-C Subjective Start: 05/19/18 07:57 Freq: Status: Active Protocol: Document 06/21/18 08:18 LRN (Rec: 06/21/18 09:03 LRN [id number]) OP-PT Subjective Patient Comments Patient Comments Leaking less. Patient Reported Progress Improving PT-OP-I Pelvic Floor Start: 05/19/18 07:57 Freq: Status: Active Protocol: Document 05/24/18 11:17 LRN (Rec: 05/24/18 13:11 LRN [id number]) Pelvic Floor Assessment Prolapse Cystocele Grade 3 SEMG (uV) Baseline 2.1 Quick Contraction 8.0 10 Second Contraction 7.0 Stability of Hold Poor/Slow SEMG Stability of Rest Good Contraction Ability Manual Muscle Testing Left 3 Manual Muscle Testing Right 0 Manual Muscle Testing Anterior 3 Manual Muscle Testing Posterior 3 Muscle Endurance (Seconds) 1 PT-OP-J Posture/Palpation/Skin Start: 05/19/18 07:57 Freq: Status: Active Protocol: Document 05/19/18 09:45 LRN (Rec: 05/19/18 15:46 LRN [id number]) Posture Evaluation Position Standing Evaluation View All positions Head/C-Spine Posture Forward Head L-Spine Posture Flattened Flexible Scoliosis on (L) Shoulder Posture (L) Elevated Pelvis Posture (L) Iliac Crest Superior (L) PSIS Posterior Skin Assessment Other Assessments Skin Assessment Comments Mild redness around external perineum PT-OP-K Range of Motion Start: 05/19/18 07:57 Freq: Status: Active Protocol: Document 05/19/18 09:45 LRN (Rec: 05/19/18 15:46 LRN [id number]) Hip Goniometric Range of Motion Hip Measured in Degrees Right Passive Hip ROM WFL Yes Testing Position Supine Extension 10 Abduction 30 Internal Rotation 65 External Rotation 55 Left Passive Hip ROM WFL Yes Testing Position Supine Extension 8 Abduction 25 Internal Rotation 52 External Rotation 65 PT-OP-M Strength Start: 05/19/18 07:57 Freq: Status: Active Protocol: Document 05/19/18 09:45 LRN (Rec: 05/19/18 15:46 LRN [id number]) Hip Strength Hip Manual Muscle Testing Right Flexion (L2) 3 Fair Extension (S1) 3 Fair Abduction 4 Good Adduction 5 Normal External Rotation 5 Normal Internal Rotation 4 Good Left Flexion (L2) 3 Fair Extension (S1) 3 Fair Abduction 5 Normal Adduction 3 Fair External Rotation 5 Normal Internal Rotation 4 Good Knee Strength Knee Manual Muscle Testing Right Flexion (S2) 5 Normal Extension (L3) 4 Good Left Flexion (S2) 4 Good Extension (L3) 5 Normal PT-OP-Q Treatments Start: 05/19/18 07:57 Freq: Status: Active Protocol: Document 06/21/18 08:18 LRN (Rec: 06/21/18 09:03 LRN [id number]) Therapeutic Exercises Supine Exercises Stretch to hip AD's Side bilateral Reps/Minutes 2' Comments L>R Hip IR stretch Supine Exercise Name Piriformis Side left Reps/Minutes 2' Comments L>R Hip flexor stretch Supine Exercise Name Standing hip flexor stretch Side left Reps/Minutes 4' Comments Training needed 4 Supine Exercise Name Fig 4 stretch - supine Side right Reps/Minutes 2' Comments R>L 3 Supine Exercise Name Resisted LE roll in/outs w/ deep breathing Side bilateral Resistance Lev 1 Equipment Used TBand Reps/Minutes 10 2 Supine Exercise Name Kegels Reps/Minutes 0 Sidelying Exercises Clamshell Side bilateral Reps/Minutes 5x2 Comments Resting between sets Hip AD Side left Reps/Minutes 15x Hip AB Side right Reps/Minutes 15x Neuro Re-Education Treatment Other Activities 1 Details PF long & Quick holds with Biofeedback Reps/Duration 16' Comments Pt practiced arik 75% of max and holding 10 sec's Self-Care/Home Management Treatment Education Patient Education Home Exercise Program Activities Self-Care/Home Management Activities HEP for Kegel ex's: Clamshell and Reverse Clamshell. Verbal I/S for wall squats or sit<->stands and standing hip flexor stretch. PT-OP-T Assessment and Plan Start: 05/19/18 07:57 Freq: Status: Active Protocol: Document 06/21/18 08:18 LRN (Rec: 06/21/18 09:03 LRN [id number]) Physical Therapy Assessment Impairments Impairments Activity Tolerance Posture ROM Strength Other Impairments Pelvic Floor (PF) Weakness. Pelvic Floor lack of endurance . Lack of education for self care. Other Concerns Age Related Concerns Osteoporosis. Breast Cancer History. Hernia History. Barriers to Rehabilitation Age Goals Four Impairment PF weakness General Handling Supervisor Goal (LTG) Pt will demonstrate increase PF strength with lessening the pt's awareness of her bladder protruding from the PF in supine and allow the pt to prevent urinary leakage with a strong urge. Three Impairment Pt unable to maintain continence while walking to the bathroom. Short Term Goal (STG) Pt will be able to use the urinary delay technique to allow pt to walking to the bathroom without leaking. STG Duration 05/30/18 General Handling Supervisor Goal (LTG) Pt will demonstrate improved PF endurance by hold a PF contraction 10 sec's prior to fatigue to prevent urinary leakage with an urge sensation . LTG Duration 07/26/18 Two Impairment Pt lacks knowledge of proper dietary habits to minimize urgency General Handling Supervisor Goal (LTG) Pt will be educated in Bladder retraining LTG Duration 07/26/18. 06/03/18: GOAL MET One Impairment Pt lacks self residential program. Care Home Goal (LTG) Pt will be independent on a HEP for self care ex's. LTG Duration 07/26/18 Assessment Summary Assessment Pt doing well with recall of HEP. Pt will be gone for 1 month and will have to work on strengthening independently until her return. Pt appears to understand progression of exercise from sidelie to standing ex's. Physical Therapy Plan Frequency and Duration Frequency of Treatment 1x/Week Plan of Care Start Date 05/19/18 Plan of Care End Date 07/26/18 Therapeutic Interventions Therapeutic Interventions Home Exercise Program Joint Mobilizations Manual Therapy Neuromuscular Re-education Patient/Caregiver Education Self-Care/Home Management Soft Tissue Mobilization Therapeutic Exercises Next Visit Focus/Plan Next Note Type Treatment Note Next Visit Plan Reassess since pt will have been away 1 month; review HEP. Continue PF strengthening with ?EMG biofeedback on wedge and stim. Progress HEP with hip strengthen hips (flex, ext, & IR right).
--- NOTE | 2018-08-22 15:00 | PT.OPPOC ---
Current Diagnoses Cystocele, unspecified (08/22/18) Provider Visit Care Team Role Provider Type Dez Hill MD Primary Care Provider Physician Specialty: Internal Medicine Address: [address] [place] [address], [id number] Email: Nakita Delatorre MD Attending Provider Physician Family Provider Specialty: FIELD ADMINISTRATIVE ASSISTANT Address: [address] [place] [address], [id number] Email: [email or web address] Plan Of Care PT-OP-T Assessment and Plan Start: 05/19/18 07:57 Freq: Status: Active Protocol: Document 08/22/18 09:53 LRN (Rec: 08/22/18 10:40 LRN [id number]) Physical Therapy Assessment Rehab Potential Rehabilitation Potential Good Impairments Impairments Activity Tolerance Posture ROM Strength Other Impairments Pelvic Floor (PF) Weakness. Pelvic Floor lack of endurance . Lack of education for self care. Other Concerns Age Related Concerns Osteoporosis. Breast Cancer History. Hernia History. Barriers to Rehabilitation Age Goals Four Impairment PF weakness Film Critic Goal (LTG) Pt will demonstrate increase PF strength with lessening the pt's awareness of her bladder protruding from the PF in supine and allow the pt to prevent urinary leakage with a strong urge. Three Impairment Pt unable to maintain continence while walking to the bathroom. Short Term Goal (STG) 1x leakage. STG Duration 09/10/18 Mcfp Goal (LTG) Pt will demonstrate improved PF endurance by holding a PF contraction 5 sec 's or greater prior to fatigue to prevent urinary leakage with an urge sensation. LTG Duration 09/26/18 Two Impairment Pt lacks knowledge of proper dietary habits to minimize urgency Mcfp Goal (LTG) Pt will be educated in Bladder retraining LTG Duration 07/26/18. 06/03/18: GOAL MET One Impairment Pt lacks self jail program for sitting and standing ex's. Film Critic Goal (LTG) Pt will be independent on a HEP for self care ex's. LTG Duration 09/26/18 Assessment Summary Assessment Pt returns for her 5th visit after 2 months of abscence from therapy. She presents with a decrease in PF strength both in long holds and quick contractions, but with slightly improved endurance of hold (2 sec's vs 1 sec) and improved symmetry of contraction with mild increase in strength on the right side from 0/5 to 1/5 (all other areas are 2/5). The pt is interested in learning the next progression of a strengthening program from supine to sit and/or stand. Although the pt demonstrates decreased strength of contraction she does appear to be able to isolate her PF from other substitute muscles, possibly making her strength appear less. I can further educate pt in sitting and standing PF ex's, but since the position of the bladder descent does not appear changed I recommend further medical follow up possible alternative methods of care. Physical Therapy Plan Frequency and Duration Frequency of Treatment 1x/Week Plan of Care Start Date 08/22/19 Plan of Care End Date 09/26/18 Therapeutic Interventions Therapeutic Interventions Home Exercise Program Joint Mobilizations Manual Therapy Neuromuscular Re-education Patient/Caregiver Education Self-Care/Home Management Soft Tissue Mobilization Therapeutic Exercises Next Visit Focus/Plan Next Note Type Treatment Note Next Visit Plan Progress pt onto independent HEP of sitting and standing ex 's with continuation of neuro- alfred to strengthen PF with hips elevated. Plan DC to HEP in 2-4 visits. Plan of Care Dates Plan of Care Start Date 08/22/19 Plan of Care End Date 09/26/18 Please Sign and Return: I have reviewed this Plan of Care and certify that the skilled therapy services above are required to meet the patient?s needs. Physician Signature Date Printed Name and Credentials Clinical Instructor Signature Printed Name and Credentials
--- NOTE | 2018-08-22 15:00 | PT.OTN ---
Current Diagnoses Cystocele, unspecified (08/22/18) Physical Therapy Treatment Note PT-OP-A Visit Information Start: 05/19/18 07:57 Freq: Status: Active Protocol: Document 08/22/18 09:53 LRN (Rec: 08/22/18 10:40 LRN [id number]) Out-Patient Physical Therapy Visit Information Visit Information Visit Type Progress Note Visit Start Time 09:53 Visit Stop Time 10:40 Total Visit Minutes 47 Visit Number 6 Number of PASTORAL MINISTRIES PROFESSOR Visits 0 Evaluation Information Evaluation Date 05/19/18 PT-OP-B Current Condition Start: 05/19/18 07:57 Freq: Status: Active Protocol: Document 05/19/18 09:45 LRN (Rec: 05/19/18 10:48 LRN [id number]) Current Condition History of Current Condition Onset Date 4 months ago Current Complaints Something protruding from her pelvic floor. History of Current Condition Pt reports feeling something protruding from her pelvic floor in standing and that she could actually see something protruding after undergoing a hysterectomy in 2006. She states he had a bladder lift with her hysterectomy. She always wears a pad and did notice a little leaking after the of her son in 1980. Pt is 1, Parity 1. She currently wears a pad daily with one change per day unless she totally wets herself, which is not often. She is active and hikes for exercise quite a bit. Prior Treatments and Tests None Future Testing and Treatments Planned None Developmental History Developmental History Goal is to strengthen the pelvic floor. Goal is to prevent wetting outer clothing outside of home . Treatment Goals Patient/Caregiver Goals Goal is to strength muscles. 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 Has grandson she occasionally sees and still lifts. PT-OP-C Subjective Start: 05/19/18 07:57 Freq: Status: Active Protocol: Document 08/22/18 09:53 LRN (Rec: 08/22/18 15:54 LRN [id number]) OP-PT Subjective Patient Comments Patient Comments States she can still feel her bladder is dropped. PT-OP-I Pelvic Floor Start: 05/19/18 07:57 Freq: Status: Active Protocol: Document 08/22/18 09:53 LRN (Rec: 08/22/18 15:59 LRN [id number]) Pelvic Floor Assessment Prolapse Cystocele Grade 3 Prolapse Comments Checked in standing and supine . Perineal Descent Resting Present Bearing Present SEMG (uV) Baseline 1.3 Quick Contraction 5.07 10 Second Contraction 4.71 SEMG Stability of Rest Good Contraction Ability Manual Muscle Testing Left 3 Manual Muscle Testing Right 1 Manual Muscle Testing Anterior 3 Manual Muscle Testing Posterior 3 Muscle Endurance (Seconds) 2 Comments Pelvic Floor Comments EMG Biofeedback: Resting tone: 1.3 microVolt's (uV's). Quick Flicks (2 sec/2 sec): Avg work is 5.07 uV's; avg rest is 3.22 uV's. Long Holds: (10 sec work/10 sec rest): Avg work is 4.7 uV' s, avg rest is 1.69 uV's. PT-OP-J Posture/Palpation/Skin Start: 05/19/18 07:57 Freq: Status: Active Protocol: Document 05/19/18 09:45 LRN (Rec: 05/19/18 15:46 LRN [id number]) Posture Evaluation Position Standing Evaluation View All positions Head/C-Spine Posture Forward Head L-Spine Posture Flattened Flexible Scoliosis on (L) Shoulder Posture (L) Elevated Pelvis Posture (L) Iliac Crest Superior (L) PSIS Posterior Skin Assessment Other Assessments Skin Assessment Comments Mild redness around external perineum PT-OP-K Range of Motion Start: 05/19/18 07:57 Freq: Status: Active Protocol: Document 05/19/18 09:45 LRN (Rec: 05/19/18 15:46 LRN [id number]) Hip Goniometric Range of Motion Hip Measured in Degrees Right Passive Hip ROM WFL Yes Testing Position Supine Extension 10 Abduction 30 Internal Rotation 65 External Rotation 55 Left Passive Hip ROM WFL Yes Testing Position Supine Extension 8 Abduction 25 Internal Rotation 52 External Rotation 65 PT-OP-M Strength Start: 05/19/18 07:57 Freq: Status: Active Protocol: Document 08/22/18 09:53 LRN (Rec: 08/22/18 16:00 LRN [id number]) Hip Strength Hip Manual Muscle Testing Right Flexion (L2) 4- Good- Extension (S1) 3 Fair Comments Strength is generally 5/5 except as noted above. Left Flexion (L2) 5 Normal Extension (S1) 3 Fair Comments Strength is generally 5/5 except as noted above. PT-OP-Q Treatments Start: 05/19/18 07:57 Freq: Status: Active Protocol: Document 08/22/18 09:53 LRN (Rec: 08/22/18 15:54 LRN [id number]) Therapeutic Exercises Supine Exercises TA strengthening Side bilateral Comments left > right; unable to activate left side Hip flexor strengthening Supine Exercise Name SLR Side bilateral Comments Strengthening left side & MMT bilateral Hip IR stretch Supine Exercise Name Piriformis Side left Reps/Minutes 1' Comments Reviewed Hip flexor stretch Supine Exercise Name Standing hip flexor stretch Side left Reps/Minutes 1' Comments Reviewed 4 Supine Exercise Name Fig 4 stretch - supine Side right Reps/Minutes 1' Comments Reviewed Prone Exercises Hip Extension Side bilateral Comments MMT Sidelying Exercises TA strengthening Side left Hip AD Side bilateral Comments MMT Hip AB Side bilateral Comments MMT Neuro Re-Education Treatment Other Activities 1 Details PF long & Quick holds with Biofeedback Reps/Duration 16' Comments With EMG Biofeedback and with digital palpationi. Self-Care/Home Management Treatment Education Patient Education Home Exercise Program Activities Self-Care/Home Management Activities HEP issued and reviewed for Christian Richardson. PT-OP-T Assessment and Plan Start: 05/19/18 07:57 Freq: Status: Active Protocol: Document 08/22/18 09:53 LRN (Rec: 08/22/18 10:40 LRN [id number]) Physical Therapy Assessment Rehab Potential Rehabilitation Potential Good Impairments Impairments Activity Tolerance Posture ROM Strength Other Impairments Pelvic Floor (PF) Weakness. Pelvic Floor lack of endurance . Lack of education for self care. Other Concerns Age Related Concerns Osteoporosis. Breast Cancer History. Hernia History. Barriers to Rehabilitation Age Goals Four Impairment PF weakness Longterm Goal (LTG) Pt will demonstrate increase PF strength with lessening the pt's awareness of her bladder protruding from the PF in supine and allow the pt to prevent urinary leakage with a strong urge. Three Impairment Pt unable to maintain continence while walking to the bathroom. Short Term Goal (STG) 1x leakage. STG Duration 09/10/18 Longterm Goal (LTG) Pt will demonstrate improved PF endurance by holding a PF contraction 5 sec 's or greater prior to fatigue to prevent urinary leakage with an urge sensation. LTG Duration 09/26/18 Two Impairment Pt lacks knowledge of proper dietary habits to minimize urgency Longterm Goal (LTG) Pt will be educated in Bladder retraining LTG Duration 07/26/18. 06/03/18: GOAL MET One Impairment Pt lacks self snf program for sitting and standing ex's. Town Justice Goal (LTG) Pt will be independent on a HEP for self care ex's. LTG Duration 09/26/18 Assessment Summary Assessment Pt returns for her 5th visit after 2 months of abscence from therapy. She presents with a decrease in PF strength both in long holds and quick contractions, but with slightly improved endurance of hold (2 sec's vs 1 sec) and improved symmetry of contraction with mild increase in strength on the right side from 0/5 to 1/5 (all other areas are 2/5). The pt is interested in learning the next progression of a strengthening program from supine to sit and/or stand. Although the pt demonstrates decreased strength of contraction she does appear to be able to isolate her PF from other substitute muscles, possibly making her strength appear less. I can further educate pt in sitting and standing PF ex's, but since the position of the bladder descent does not appear changed I recommend further medical follow up possible alternative methods of care. Physical Therapy Plan Frequency and Duration Frequency of Treatment 1x/Week Plan of Care Start Date 08/22/19 Plan of Care End Date 09/26/18 Therapeutic Interventions Therapeutic Interventions Home Exercise Program Joint Mobilizations Manual Therapy Neuromuscular Re-education Patient/Caregiver Education Self-Care/Home Management Soft Tissue Mobilization Therapeutic Exercises Next Visit Focus/Plan Next Note Type Treatment Note Next Visit Plan Progress pt onto independent HEP of sitting and standing ex 's with continuation of neuro- alfred to strengthen PF with hips elevated. Plan DC to HEP in 2-4 visits.
--- NOTE | 2018-09-05 16:26 | PT.OTN ---
Current Diagnoses Cystocele, unspecified (09/05/18) Physical Therapy Treatment Note PT-OP-A Visit Information Start: 05/19/18 07:57 Freq: Status: Active Protocol: Document 09/05/18 10:36 LRN (Rec: 09/05/18 11:36 LRN [id number]) Out-Patient Physical Therapy Visit Information Visit Information Visit Type Treatment Note Visit Start Time 10:36 Visit Stop Time 11:24 Total Visit Minutes 48 Visit Number 7 Number of COMPUTER HARDWARE DEVELOPER Visits 0 Evaluation Information Evaluation Date 05/19/18 PT-OP-B Current Condition Start: 05/19/18 07:57 Freq: Status: Active Protocol: Document 05/19/18 09:45 LRN (Rec: 05/19/18 10:48 LRN [id number]) Current Condition History of Current Condition Onset Date 4 months ago Current Complaints Something protruding from her pelvic floor. History of Current Condition Pt reports feeling something protruding from her pelvic floor in standing and that she could actually see something protruding after undergoing a hysterectomy in 2006. She states he had a bladder lift with her hysterectomy. She always wears a pad and did notice a little leaking after the of her son in 1980. Pt is 1, Parity 1. She currently wears a pad daily with one change per day unless she totally wets herself, which is not often. She is active and hikes for exercise quite a bit. Prior Treatments and Tests None Future Testing and Treatments Planned None Developmental History Developmental History Goal is to strengthen the pelvic floor. Goal is to prevent wetting outer clothing outside of home . Treatment Goals Patient/Caregiver Goals Goal is to strength muscles. 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 Has grandson she occasionally sees and still lifts. PT-OP-C Subjective Start: 05/19/18 07:57 Freq: Status: Active Protocol: Document 09/05/18 10:36 LRN (Rec: 09/05/18 11:36 LRN [id number]) OP-PT Subjective Patient Comments Patient Comments No changes noticed. Feels she is ready for discharge to a [facility]. Patient Reported Progress Same PT-OP-I Pelvic Floor Start: 05/19/18 07:57 Freq: Status: Active Protocol: Document 08/22/18 09:53 LRN (Rec: 08/22/18 15:59 LRN [id number]) Pelvic Floor Assessment Prolapse Cystocele Grade 3 Prolapse Comments Checked in standing and supine . Perineal Descent Resting Present Bearing Present SEMG (uV) Baseline 1.3 Quick Contraction 5.07 10 Second Contraction 4.71 SEMG Stability of Rest Good Contraction Ability Manual Muscle Testing Left 3 Manual Muscle Testing Right 1 Manual Muscle Testing Anterior 3 Manual Muscle Testing Posterior 3 Muscle Endurance (Seconds) 2 Comments Pelvic Floor Comments EMG Biofeedback: Resting tone: 1.3 microVolt's (uV's). Quick Flicks (2 sec/2 sec): Avg work is 5.07 uV's; avg rest is 3.22 uV's. Long Holds: (10 sec work/10 sec rest): Avg work is 4.7 uV' s, avg rest is 1.69 uV's. PT-OP-J Posture/Palpation/Skin Start: 05/19/18 07:57 Freq: Status: Active Protocol: Document 05/19/18 09:45 LRN (Rec: 05/19/18 15:46 LRN [id number]) Posture Evaluation Position Standing Evaluation View All positions Head/C-Spine Posture Forward Head L-Spine Posture Flattened Flexible Scoliosis on (L) Shoulder Posture (L) Elevated Pelvis Posture (L) Iliac Crest Superior (L) PSIS Posterior Skin Assessment Other Assessments Skin Assessment Comments Mild redness around external perineum PT-OP-K Range of Motion Start: 05/19/18 07:57 Freq: Status: Active Protocol: Document 05/19/18 09:45 LRN (Rec: 05/19/18 15:46 LRN [id number]) Hip Goniometric Range of Motion Hip Measured in Degrees Right Passive Hip ROM WFL Yes Testing Position Supine Extension 10 Abduction 30 Internal Rotation 65 External Rotation 55 Left Passive Hip ROM WFL Yes Testing Position Supine Extension 8 Abduction 25 Internal Rotation 52 External Rotation 65 PT-OP-M Strength Start: 05/19/18 07:57 Freq: Status: Active Protocol: Document 08/22/18 09:53 LRN (Rec: 08/22/18 16:00 LRN [id number]) Hip Strength Hip Manual Muscle Testing Right Flexion (L2) 4- Good- Extension (S1) 3 Fair Comments Strength is generally 5/5 except as noted above. Left Flexion (L2) 5 Normal Extension (S1) 3 Fair Comments Strength is generally 5/5 except as noted above. PT-OP-Q Treatments Start: 05/19/18 07:57 Freq: Status: Active Protocol: Document 09/05/18 10:36 LRN (Rec: 09/05/18 11:36 LRN [id number]) Therapeutic Exercises Supine Exercises 3 Supine Exercise Name Resisted LE roll in/outs w/ deep breathing Side bilateral Resistance Lev 1 Equipment Used TBand Reps/Minutes 10 Comments On wedge Sitting Exercises PF strengthening with LE Roll in/out Side bilateral Reps/Minutes 10' Standing Exercises Plie Standing Exercise Name Plie in open and against wall Side bilateral Reps/Minutes 10' Comments With Ladarius Self-Care/Home Management Treatment Education Patient Education Home Exercise Program Activities Self-Care/Home Management Activities Review of HEP with at length discussion of ex's and goals with exercises. Issued and reviewed new home ex's of sitting and standing PF ex's. PT-OP-T Assessment and Plan Start: 05/19/18 07:57 Freq: Status: Active Protocol: Document 09/05/18 10:36 LRN (Rec: 09/05/18 11:36 LRN [id number]) Physical Therapy Assessment Goals Four Impairment PF weakness Fci Goal (LTG) Pt will demonstrate increase PF strength with lessening the pt's awareness of her bladder protruding from the PF in supine and allow the pt to prevent urinary leakage with a strong urge. LTG Duration 09/05/18: Goal not met. Pt feels there has been no change . Three Impairment Pt unable to maintain continence while walking to the bathroom. Short Term Goal (STG) 1x leakage. STG Duration 09/10/18 (09/05/18: Goal not met. Pt sometimes experiences leakage) Penology Professor Goal (LTG) Pt will demonstrate improved PF endurance by holding a PF contraction 5 sec 's or greater prior to fatigue to prevent urinary leakage with an urge sensation. (Goal partially met: Pt feels she can hold a PF contraction 5 sec's and she is able to avoid urinary leakage sometimes using the delay technique with a sudden urge). LTG Duration 09/26/18 (09/05/18: Goal partially met) Two Impairment Pt lacks knowledge of proper dietary habits to minimize urgency Fci Goal (LTG) Pt will be educated in Bladder retraining. LTG Duration 07/26/18. 06/03/18: GOAL MET One Impairment Pt lacks self snf program for sitting and standing ex's. Penology Professor Goal (LTG) Pt will be independent on a HEP for self care ex's. LTG Duration 09/26/18 (09/05/18: Goal Met) Assessment Summary Assessment Today the pt was progressed on her HEP to sitting and standing PF strengthening exercises. At the end of the treatment she requested discharge from therapy due to her hectic holiday schedule. She feels she understands her ex's and would like to try continuing with her home program to see if she can improve. She notes no change since her recheck on her last treatment; therefore it is expected that her condition is the same. Overall she has had mild increase in endurance of her PF from holding 1 sec to 3-4 secs, and she has decreased her resting tone from 2.25 microvolts to 1.69 microvolts, but her overall strength of contraction has decreased. The pt does admit to not being as consistent with her exercises. The pt has chosen to be discharged from PT to a HEP. Since her strength has not improved, I recommended the pt return for other physician recommendations of care. We briefly talked of an external support (pessary). If the pt choses in the new year to try therapy again when she can focus more on her exercise program, this would be appropriate. Thank you for your physical therapy referral . Physical Therapy Plan Frequency and Duration Plan of Care End Date 09/05/18 Discharge Physical Therapy Discharge Reasons Patient Request Discharge Comments Pt ready for placement on an independent program and would like to cancel her last appointment due to her busy holiday schedule. No further therapy planned.
== END 2018-09-29 13:41 ==
LOC: PHYS 10:30
PROVIDERS: Family Provider Specialist; PCP Internal Medicine; Visit Provider Specialist
DX: N81.10 Cystocele, unspecified (principal)
CPT/HCPCS: 97110; 97112; 97161; 97535

== ENCOUNTER 2018-10-12 07:59 | Day surgery (SDC) | payer MEDICARE, OTHER, SELFPAY ==
[2018-10-12] VITALS (7 sets, daily range): BP systolic 104–134; BP diastolic 61–80; PULSE 57–98; RESP 10–16; TEMP 36.2–36.7; O2SAT 96–100; BMI 21.6
--- NOTE | 2018-10-12 | PATH_ITS ---
[facility] Accession Number: [id number] . 01 Material submitted: . PART A: ASCENDING COLON POLYP PART B: SIGMOID COLON POLYP . 02 Diagnosis: A. Ascending Colon, Polyp, Biopsy: Tubular adenoma. . B. Sigmoid Colon, Polyp, Biopsy: Hyperplastic polyp. MRV/10/13/2018 . 02 Electronically signed: . Raquel Casey MD, Pathologist NPI- [id number] . 01 Gross description: . Received two formalin-filled containers both labeled with the patient's name. . A. In a container labeled ascending colon polyp, the specimen consists of a 0.6 cm portion of tissue. Entirely submitted in cassette A. B. In a container labeled sigmoid colon polyp, the specimen consists of a 0.3 cm portion of tissue. Entirely submitted in cassette B. ([facility]:[id number]) /[facility] . 02 Pathologist provided ICD-10: D12.2 . 02 CPT . 598328, [id number] Performed at: 01 [facility] [address] [id number] MD Thad Mcleod MD Phone: [phone] Performed at: 02 [facility] [address] [place], [place] [id number] MD Raquel Casey MD Phone: [phone]
[2018-10-12] MEDS: MIDAZOLAM 5 MG/5 ML VIAL IV (09:10)
[2018-10-12] MEDS: fentaNYL 250 MCG/5 ML INJ IV (09:11)
--- NOTE | 2018-10-12 09:11 | PM.HP.1 ---
History of Present Illness Date Patient Seen: 10/12/18 Time Patient Seen: 08:33 Chief complaint: [id number] Narrative: Screening colonoscopy. Last colonoscopy over 10 years ago. No history of polyps. Family history of colorectal cancer in 2 distant relatives. Patient History Family & Social History Social History: household members spouse Tobacco & Substance use: Smoking Status Never smoker Meds Home Medications Medication Instructions Recorded Confirmed Type aspirin 81 mg PO 2XW #0 02/16/13 10/12/18 History calcium carbonate 500 mg PO TID #0 02/16/13 10/12/18 History omega-3 fatty acids [Fish Oil 1,000 mg PO DAILY #0 02/16/13 10/12/18 History Concentrate] cholecalciferol (vitamin D3) 1,000 1,000 mg PO DAILY 05/04/18 10/12/18 History unit capsule clobetasol 1 applic TOPICAL PRN PRN 10/12/18 10/12/18 History Allergies Allergy/AdvReac Type Severity Reaction Status Date / Time INGREDIENT: NKDA - NO KNOWN Allergy Unknown Uncoded 10/12/18 08:27 DRUG ALLERGIES Exam Vital Signs (past 8 hours): - 10/12/18 08:15 Temperature 97.7 F Pulse Rate 72 Respiratory Rate 16 Blood Pressure 134/80 Pulse Oximetry 96 Oxygen Delivery Method Room Air Narrative Exam Narrative: Oropharynx free of lesions Chest clear to auscultation percussion Cardiac exam reveals no S3 or murmur Assessment & Plan Plan: Assessment/Plan Narrative: Need for screening colonoscopy. Risks benefits and alternatives have been explained.
--- NOTE | 2018-10-12 09:13 | PM.OP.ENDO ---
Operative Date/Time/Diagnoses Date of procedure: 10/12/18 Time of procedure: 09:13 Pre-op diagnosis: See indications Procedure & Clinicians Study performed: Screening colonoscopy Same procedure as scheduled: Yes Indications: Screening Surgeon: Carlitos Selby Procedure Notes Procedure in detail: After informed consent was obtained the patient was placed in the left lateral decubitus position. The video colonoscope was introduced into the rectum slowly advanced to the cecum. Preparation was excellent. On slow withdrawal mucosa was carefully examined. Scope was removed patient tolerated procedure well. Blood loss none Complications none Sedation Total sedation time 23 min Versed 8 mg fentanyl 100 mcg IV titration Findings 1. Extensive and severe sigmoid diverticulosis with a very tortuous colon 2. 4 mm polyp in the sigmoid colon Jumbo biopsy removed completely 3. 10 mm polyp in the ascending colon hot snared and removed completely. Patient will be called regarding biopsy results. She should have follow-up colonoscopy in 5 years.
[2018-10-12] MEDS: SODIUM CHLORIDE 0.9% 1,000 ML 42 ML IV (09:22)
== END 2018-10-12 10:02 | disposition home or self-care (01) ==
PROVIDERS: PCP Internal Medicine; Visit Provider Internal Medicine Gastroenterology
PROC: 0DJD8ZZ Inspection of Lower Intestinal Tract, Via Natural or Artificial Opening Endoscopic (ICD-10-PCS; CPT 45378; principal; 2018-10-12 09:00)
DX: Z12.11 Encounter for screening for malignant neoplasm of colon (principal); D12.5 Benign neoplasm of sigmoid colon; D12.2 Benign neoplasm of ascending colon; K57.30 Diverticulosis of large intestine without perforation or abscess without bleeding
CPT/HCPCS: 45385; 45380; 88305; J2250; J3010

== ENCOUNTER → 2019-09-01 11:05 | Outpatient (CLI) | payer MEDICARE, OTHER, SELFPAY ==
--- NOTE | 2019-09-01 | DI.MG.S_ITS ---
BILATERAL DIGITAL SCREENING MAMMOGRAM 3D/2D WITH CAD POST LUMPECTOMY: 09/01/2019 CLINICAL: Routine screening. Personal history of left breast cancer. Comparison is made to exams dated: 08/24/2018 mammogram - [facility], 07/30/2017 mammogram, and 07/28/2016 mammogram - [facility]. The tissue of both breasts is heterogeneously dense. This may lower the sensitivity of mammography. Current study was also evaluated with a Computer Aided Detection (CAD) system. There is a 0.5 cm oval equal density asymmetry in the left breast anterior depth superior region seen on the mediolateral oblique view only. No other significant masses, calcifications, or other findings are seen in either breast. IMPRESSION: INCOMPLETE: NEEDS ADDITIONAL IMAGING EVALUATION The 0.5 cm oval equal density asymmetry in the left breast is indeterminate. Additional views with possible ultrasound are recommended. This exam was interpreted at Station ID: [id number]. NOTE: For mammograms, a report in lay terms will be sent to the patient. Approximately 15% of breast malignancies will not be visualized mammographically. In the management of a palpable breast mass, a negative mammogram must not discourage biopsy of a clinically suspicious lesion. Electronically Signed By: Doroteo Catherine M.D. at/:09/04/2019 19:21:52 copy to: AGUILA ORTEGA letter sent: Additional Imaging Needed ACR BI-RADS Category 0: Incomplete 3340F
== END ==
PROVIDERS: Family Provider Specialist; PCP Internal Medicine; Visit Provider Internal Medicine
DX: Z12.31 Encounter for screening mammogram for malignant neoplasm of breast (principal); Z85.3 Personal history of malignant neoplasm of breast
CPT/HCPCS: 77063; 77067

== ENCOUNTER → 2019-09-07 16:45 | Outpatient (ROUT) | payer MEDICARE, OTHER, SELFPAY ==
[2019-09-07 17:00] LABS: Cholesterol 251 mg/dL (140-199); Glucose 89 mg/dL (80-110); HDL Cholesterol 91 mg/dL (40-60); LDL Cholesterol Calculated 142 mg/dL (<100); Triglycerides 90 mg/dL (35-150)
== END ==
PROVIDERS: Family Provider Specialist; PCP Internal Medicine; Visit Provider Internal Medicine
DX: E78.2 Mixed hyperlipidemia (principal)
CPT/HCPCS: 80061; 82947

== ENCOUNTER → 2020-09-12 14:39 | Outpatient (ROUT) | payer MEDICARE, OTHER, SELFPAY ==
[2020-09-12 15:11] LABS: Cholesterol 277 mg/dL (140-199); Glucose 94 mg/dL (80-110); Triglycerides 112 mg/dL (35-150)
[2020-09-12 15:20] LABS: HDL Cholesterol 125 mg/dL (40-60); LDL Cholesterol Calculated 130 mg/dL (<100)
[2020-09-13 10:36] LABS: Var-Zoster Immunity Screen 815 index (Immune >165)
== END ==
PROVIDERS: Family Provider Specialist; PCP Internal Medicine; Visit Provider Internal Medicine
DX: E78.2 Mixed hyperlipidemia (principal); Z20.820 Contact with and (suspected) exposure to varicella
CPT/HCPCS: 80061; 82947; 86787

== ENCOUNTER → 2020-09-26 09:40 | Outpatient (CLI) | payer MEDICARE, OTHER, SELFPAY ==
--- NOTE | 2020-09-26 | DI.MG.S_ITS ---
BILATERAL DIGITAL SCREENING MAMMOGRAM 3D/2D WITH CAD POST LUMPECTOMY: 09/26/2020 CLINICAL: Routine screening. Personal history of left breast cancer. Comparison is made to exams dated: 09/01/2019 mammogram, 08/24/2018 mammogram - [facility], 07/30/2017 mammogram, and 09/21/2019 mammogram - [facility]. The tissue of both breasts is heterogeneously dense. This may lower the sensitivity of mammography. Current study was also evaluated with a Computer Aided Detection (CAD) system. There are benign post operative findings in the left breast. No significant masses, calcifications, or other findings are seen in either breast. There has been no significant interval change. IMPRESSION: BENIGN There is no mammographic evidence of malignancy. A 1 year screening mammogram is recommended. This exam was interpreted at Station ID: [id number]. NOTE: For mammograms, a report in lay terms will be sent to the patient. Approximately 15% of breast malignancies will not be visualized mammographically. In the management of a palpable breast mass, a negative mammogram must not discourage biopsy of a clinically suspicious lesion. Electronically Signed By: Kunal juarez/scout:09/26/2020 10:50:56 copy to: PATSY SALCEDO letter sent: Normal Exam ACR BI-RADS Category 2: Benign Finding(s) 3342F
== END ==
PROVIDERS: Family Provider Specialist; PCP Internal Medicine; Referring Provider Specialist; Visit Provider Specialist
DX: Z12.31 Encounter for screening mammogram for malignant neoplasm of breast (principal); Z85.3 Personal history of malignant neoplasm of breast
CPT/HCPCS: 77063; 77067

== ENCOUNTER → 2020-10-04 13:34 | Outpatient (CLI) | payer MEDICARE, OTHER, SELFPAY | PROVIDERS: Family Provider Specialist; PCP Internal Medicine; Referring Provider Internal Medicine; Visit Provider Internal Medicine | DX: M81.0 Age-related osteoporosis without current pathological fracture (principal); Z78.0 Asymptomatic menopausal state; Z85.3 Personal history of malignant neoplasm of breast; Z82.62 Family history of osteoporosis | CPT/HCPCS: 77080 ==

== ENCOUNTER → 2021-06-25 08:17 | Outpatient (CLI) | payer MEDICARE, OTHER, SELFPAY ==
[2021-06-25 14:15] LABS: COVID19 -Nasal RAPID POSITIVE (Negative)
== END ==
PROVIDERS: Family Provider Specialist; PCP Internal Medicine; Visit Provider Physician Assistant
DX: U07.1 COVID-19 (principal)
CPT/HCPCS: 87635

== ENCOUNTER → 2021-07-29 12:26 | Outpatient (CLI) | payer MEDICARE, OTHER, SELFPAY ==
--- NOTE | 2021-07-29 | DI.RAD.S_ITS ---
PROCEDURE: XR CHEST 2V INDICATIONS: acute left side thoracic back pain TECHNIQUE: 2 views of the chest were acquired. COMPARISON: [facility], , CHEST 2 VIEW, 07/08/2009, 15:20. FINDINGS: Surgical changes and devices: None. Lungs and pleura: Biapical pleural thickening/scarring. No consolidation, pleural effusions or pneumothorax. Mediastinum: Mediastinal contours are normal. Heart size is normal. Bones and chest wall: No suspicious bony abnormalities. Soft tissues appear unremarkable. The diaphragms appear flattened. IMPRESSION: No acute cardiopulmonary abnormality. Dictated by: Tomas Hickman M.D. on 07/29/2021 at 12:53 Approved by: Tomas Hickman M.D. on 07/29/2021 at 12:54
== END ==
PROVIDERS: Family Provider Specialist; PCP Internal Medicine; Referring Provider Internal Medicine; Visit Provider Internal Medicine
DX: M54.6 Pain in thoracic spine (principal)
CPT/HCPCS: 71046

== ENCOUNTER → 2021-10-10 07:58 | Outpatient (CLI) | payer MEDICARE, OTHER, SELFPAY ==
--- NOTE | 2021-10-10 | DI.MG.S_ITS ---
BILATERAL DIGITAL SCREENING MAMMOGRAM 3D/2D WITH CAD: 10/10/2021 CLINICAL: Routine screening. Personal history of left breast cancer. Comparison is made to exams dated: 09/26/2020 mammogram - [facility], 09/21/2019 mammogram - [facility], 09/01/2019 mammogram, and 08/24/2018 mammogram - [facility]. The tissue of both breasts is heterogeneously dense. This may lower the sensitivity of mammography. Current study was also evaluated with a Computer Aided Detection (CAD) system. There are benign post operative findings in the left breast. No significant masses, calcifications, or other findings are seen in either breast. There has been no significant interval change. IMPRESSION: BENIGN There is no mammographic evidence of malignancy. A 1 year screening mammogram is recommended. This exam was interpreted at Station ID: [id number]. NOTE: For mammograms, a report in lay terms will be sent to the patient. Approximately 15% of breast malignancies will not be visualized mammographically. In the management of a palpable breast mass, a negative mammogram must not discourage biopsy of a clinically suspicious lesion. Electronically Signed By: Yvonne hastings/scout:10/10/2021 11:00:14 letter sent: Normal Exam ACR BI-RADS Category 2: Benign Finding(s) 3342F
== END ==
PROVIDERS: Family Provider Specialist; PCP Internal Medicine; Referring Provider Internal Medicine; Visit Provider Internal Medicine
DX: Z12.31 Encounter for screening mammogram for malignant neoplasm of breast (principal); Z85.3 Personal history of malignant neoplasm of breast
CPT/HCPCS: 77063; 77067

== ENCOUNTER → 2022-10-14 08:15 | Outpatient (CLI) | payer MEDICARE, OTHER, SELFPAY ==
--- NOTE | 2022-10-14 | DI.MG.S_ITS ---
BILATERAL DIGITAL SCREENING MAMMOGRAM 3D/2D WITH CAD POST LUMPECTOMY: 10/14/2022 CLINICAL: Routine screening. Personal history of left breast cancer. Comparison is made to exams dated: 10/10/2021 mammogram, 09/26/2020 mammogram, and 09/01/2019 mammogram - [facility]. Both breasts are heterogeneously dense, which may obscure small masses (category c / 51-75% glandular tissue). Current study was also evaluated with a Computer Aided Detection (CAD) system. There are benign post operative findings in the left breast. No significant masses, calcifications, or other findings are seen in either breast. There has been no significant interval change. IMPRESSION: BENIGN There is no mammographic evidence of malignancy. A 1 year screening mammogram is recommended. This exam was interpreted at Station ID: [id number]. NOTE: For mammograms, a report in lay terms will be sent to the patient. Approximately 15% of breast malignancies will not be visualized mammographically. In the management of a palpable breast mass, a negative mammogram must not discourage biopsy of a clinically suspicious lesion. Electronically Signed By: Kymberly reyes/scout:10/14/2022 10:49:32 letter sent: Normal Exam ACR BI-RADS Category 2: Benign Finding(s) 3342F
== END ==
PROVIDERS: Family Provider Specialist; PCP Internal Medicine; Referring Provider Internal Medicine; Visit Provider Internal Medicine
DX: Z12.31 Encounter for screening mammogram for malignant neoplasm of breast (principal); Z85.3 Personal history of malignant neoplasm of breast
CPT/HCPCS: 77063; 77067

== ENCOUNTER → 2023-01-23 08:10 | Outpatient (CLI) | payer MEDICARE, OTHER, SELFPAY ==
[2023-01-23 10:18] LABS: Add Manual Diff / Slide Review NO; Alanine Aminotransferase 16 IU/L (<35); Albumin 4.4 g/dL (3.5-5.0); Albumin Globulin Ratio 1.4 (1.0-2.8); Alkaline Phosphatase 84 U/L (38-126); Aspartate Aminotransferase 29 IU/L (14-36); BUN Creatinine Ratio 18.7 (6-22); Basophils Absolute Auto 0 /uL (0-100); Bilirubin Total 0.6 mg/dL (0.2-1.3); Blood Urea Nitrogen 17 mg/dL (7-17); Calcium 9.2 mg/dL (8.4-10.2); Carbon Dioxide 28 mmol/L (22-32); Chloride 102 mmol/L (98-107); Cholesterol 255 mg/dL (140-199); Eosinophils Absolute Auto 200 /uL (0-450); Eosinophils Percent Auto 4.2 % (2-4); Estimated Glomerular Filt Rate > 60 mL/min (>60); Globulin 3.1 g/dL (1.7-4.1); Glucose 92 mg/dL (80-110); HDL Cholesterol 108 mg/dL (40-60); HEMOLYSIS < 15 (0-50); Hematocrit 40.1 % (36-46); Hemoglobin 13.5 g/dL (12.0-16.0); LDL Cholesterol Calculated 132 mg/dL (<100); Lymphocytes Absolute Auto 900 /uL (1100-4500); Lymphocytes Percent Auto 22.6 % (25-40); Mean Corpuscular HGB Conc 33.8 % (30-36); Mean Corpuscular Hemoglobin 31.1 PG (26-34); Mean Corpuscular Volume 92.1 fL (80-100); Monocytes Absolute Auto 500 /uL (0-900); Monocytes Percent Auto 12.6 % (3-14); Neutrophils Absolute Auto 2500 /uL (1500-7000); Neutrophils Percent Auto 59.6 % (50-75); Platelet Count 296 X10^3/uL (150-400); Potassium 3.7 mmol/L (3.4-5.1); Red Blood Cell Count 4.35 X10^6/uL (4.0-5.2); Red Cell Distribution Width 14.5 % (11.6-14.8); Sodium 137 mmol/L (137-145); Total Protein 7.5 g/dL (6.3-8.2); Triglycerides 74 mg/dL (35-150); White Blood Cell Count 4.2 X10^3/uL (4.5-11.0)
[2023-01-26 16:23] LABS: ANA Screen, IFA Negative (.)
== END ==
PROVIDERS: Family Provider Specialist; PCP Internal Medicine; Referring Provider Internal Medicine; Visit Provider Internal Medicine
DX: E78.2 Mixed hyperlipidemia (principal); M81.0 Age-related osteoporosis without current pathological fracture; Z85.3 Personal history of malignant neoplasm of breast; B35.4 Tinea corporis; M32.9 Systemic lupus erythematosus, unspecified; R21 Rash and other nonspecific skin eruption
CPT/HCPCS: 36415; 80053; 80061; 84443; 85025; 86038

== ENCOUNTER → 2023-04-01 09:42 | Outpatient (CLI) | payer MEDICARE, OTHER, SELFPAY ==
--- NOTE | 2023-04-01 09:43 | DI.RAD.S_ITS ---
Bone Density Report Name: ERUM LOPEZ Age: 72 Sex: Female Ethnicity: White Date of : 1950 Indication: postmenopausal osteoporosis; Referring Provider: PATSY SALCEDO Study: Bone densitometry was performed. Exam Date: April 01, 2023 Accession number: [id number] Bone Density: Region BMD T-score Z-score Classification AP Spine(L1-L4) 0.699 -3.2 -0.8 Osteoporosis Femoral Neck (Left) 0.540 -2.8 -0.7 Osteoporosis Total Hip (Left) 0.644 -2.4 -0.7 Osteopenia Femoral Neck (Right) 0.635 -1.9 0.1 Osteopenia Total Hip (Right) 0.672 -2.2 -0.5 Osteopenia Total Hip Mean 0.658 -2.3 -0.6 Osteopenia World Health Organization criteria for BMD impression classify patients as: Normal (T-score at or above -1.0), Osteopenia (T-score between -1.0 and -2.5), or Osteoporosis (T-score at or below -2.5). 10-year Fracture Risk: FRAX not reported because: Some T-score for Spine Total or Hip Total or Femoral Neck at or below -2.5 Previous Exams: -- Region Exam Age BMD T-score BMD Change BMD Change Date g/cm2 vs Baseline vs Previous -- AP Spine (L1-L4) 04/01/2023 72 0.699 -3.2 -0.019 (-2.7%)# -0.019 (-2.7%)# 10/04/2020 69 0.719 -3.0 Total Hip(Left) 04/01/2023 72 0.644 -2.4 -0.006 (-1.0%)# -0.006 (-1.0%)# 10/04/2020 69 0.650 -2.4 Total Hip(Right) 04/01/2023 72 0.672 -2.2 -0.042 (-5.9%)# -0.042 (-5.9%)# 10/04/2020 69 0.714 -1.9 -- *Denotes significance at 95% confidence level, LSC for AP Spine = 0.022 g/cm2, LSC for Total Hip = 0.027 g/cm2 # Denotes dissimilar scan types or analysis methods Impression: The patient has osteoporosis, based on the Total Spine T-score. No significant bone loss was observed. Discussion: INCREASED RISK OF FRACTURE. BONE DENSITY IS UNDESIRABLY LOW AT ONE OR MORE SKELETAL SITES, CONSISTENT WITH POSTMENOPAUSAL OSTEOPOROSIS. This patient's lowest T-score meets the World Health Organization's (WHO) criteria for osteoporosis at one or more sites (T-score -2.5 or below). In untreated patients, the risk of osteoporotic fracture increases approximately two-fold for each 1.0 SD decrease in T-score. Low bone density is not the only risk factor for fracture; also consider factors such as patient's age, frailty or poor health, risk of falling, risk of injury, previous osteoporotic fracture, family history of osteoporosis, cigarette smoking, low body weight, etc. Not everyone with low bone mineral density has osteoporosis; osteomalacia and other metabolic bone disorders should also be considered. Patients who have osteoporosis should be evaluated for specific diseases and conditions (secondary causes) that may cause or contribute to bone loss. The [place] [employer]ocr[employer] (AACE) and National Osteoporosis Foundation (NOF) recommend pharmacologic intervention for all postmenopausal women whose T-score is in this range. The patient should follow a healthful lifestyle (good nutrition with adequate calcium and vitamin D, and appropriate weight-bearing exercise). Follow-Up: Consider a repeat BMD and Vertebral Fracture Assessment (VFA) exam in 2 years or sooner if medically necessary, to reassess this patient's status. Reported by: GOOD LOYOLA M.D. on 04/01/2023 10:15:00 AM.
== END ==
PROVIDERS: Family Provider Specialist; PCP Internal Medicine; Referring Provider Internal Medicine; Visit Provider Internal Medicine
DX: M81.0 Age-related osteoporosis without current pathological fracture (principal)
CPT/HCPCS: 77080

== ENCOUNTER 2023-11-17 09:03 | Day surgery (SDC) | payer MEDICARE, OTHER, SELFPAY ==
--- NOTE | 2023-11-17 | PATH_ITS ---
[facility] Accession Number: [id number] No. of containers..01 Tissue . 01 Material submitted: . colon - POLYP @ 40 . 01 Diagnosis: COLON POLYP AT 40 CM: Tubular adenoma. [facility] 11/19/2023 1147 Local . 01 Electronically signed: . Salty Larson MD, PhD, Pathologist NPI- [id number] . 01 Gross description: . POLYP @ 40: Received in formalin is 2 fragment(s) of reid, soft tissue measuring 0.3 x 0.2 x 0.1 cm to 0.1 x 0.1 x 0.1 cm submitted entirely in 1 cassette(s) /AAY 11/18/2023 0455 Local . 01 Pathologist provided ICD-10: D12.6 . 01 CPT . 726235 Specimen Comment: A courtesy copy of this report has been sent to [phone] Performed at: 01 [facility] [address] [place] [address], [place], [place] [id number] MD Thad Mcleod MD Phone: [phone]
--- NOTE | 2023-11-17 09:12 | PM.HP.1 ---
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 Grandmother Cancer Social History household members: spouse Smoking Status: Never smoker Meds Home Medications and Allergies Home Medications Medication Instructions Recorded Confirmed Type desonide 0.05 % topical ointment 1 applic topical DAILY PRN Skin 01/22/23 04/21/23 History rash acyclovir 5 % topical cream 1 applic topical 5XD 7 days #15 04/21/23 04/21/23 Rx grams cholecalciferol (vitamin D3) 25 25 mcg PO DAILY 04/21/23 04/21/23 History mcg (1,000 unit) capsule clobetasol 0.05 % topical cream 1 applic topical DAILY PRN SKIN 04/21/23 04/21/23 History RASH ketoconazole 2 % topical cream 1 applic topical DAILY PRN 04/21/23 04/21/23 History Allergies Allergy/AdvReac Type Severity Reaction Status Date / Time No Known Drug Allergies Allergy Verified 04/21/23 07:47 Exam Narrative Exam Narrative: Oropharynx free of lesions Chest clear to auscultation percussion Cardiac exam reveals no S3 or murmur Assessment & Plan Assessment & Plan narrative: See history of colon polyps need for follow-up colonoscopy. Risks, benefits, alternatives have been explained.
--- NOTE | 2023-11-17 09:13 | PM.OP.COLON ---
Operative Date/Time/Diagnoses Date of procedure: 11/17/23 Pre-op diagnosis: See indication and findings Procedure & Clinicians Study performed: Colonoscopy Indications: History of colon polyps Surgeon: Carlitos Selby Procedure Notes Procedure in detail: After informed consent was obtained the patient was placed in left lateral decubitus position. The video colonoscope was introduced the rectum slowly advanced to cecum. Preparation was good. On slow withdrawal mucosa was carefully examined. The scope was removed. The patient tolerated procedure well. Blood loss none Complications none Sedation mac Findings 1. Extensive sigmoid diverticulosis 2. 5 mm semi pedunculated polyp at 40 cm Jumbo biopsy x2 and removed completely 3. Otherwise negative colonoscopy to cecum Patient should have follow-up colonoscopy in 6-7 years
[2023-11-17] MEDS: LACTATED RINGERS 1,000 ML 42 ML IV (09:15)
[2023-11-17 09:34] VITALS: BP 127/74; PULSE 70; RESP 17; TEMP 36.2; O2SAT 99
[2023-11-17 10:24] VITALS: BP 131/67; PULSE 78; RESP 13; TEMP 36.9; O2SAT 100
[2023-11-17 10:29] VITALS: PULSE 73; RESP 15; TEMP 36.9; O2SAT 99
[2023-11-17 10:30] VITALS: BP 122/83
[2023-11-17 10:38] VITALS: BP 132/72; PULSE 70; RESP 14; TEMP 36.8; O2SAT 99
== END 2023-11-17 10:48 | disposition home or self-care (01) ==
PROVIDERS: Family Provider Specialist; PCP Internal Medicine; Referring Provider Internal Medicine Gastroenterology; Visit Provider Internal Medicine Gastroenterology
PROC: 0DJD8ZZ Inspection of Lower Intestinal Tract, Via Natural or Artificial Opening Endoscopic (ICD-10-PCS; CPT 45378; principal; 2023-11-17 10:00)
DX: Z12.11 Encounter for screening for malignant neoplasm of colon (principal); Z86.010 Personal history of colon polyps; K57.30 Diverticulosis of large intestine without perforation or abscess without bleeding; D12.6 Benign neoplasm of colon, unspecified
CPT/HCPCS: 45380; J2704

== ENCOUNTER → 2023-12-13 11:03 | Outpatient (CLI) | payer MEDICARE, OTHER, SELFPAY ==
--- NOTE | 2023-12-13 11:05 | DI.MG.S_ITS ---
BILATERAL DIGITAL SCREENING MAMMOGRAM 3D/2D WITH CAD POST LUMPECTOMY: 12/13/2023 CLINICAL: Routine screening. Personal history of left breast cancer. Comparison is made to exams dated: 10/14/2022 mammogram, 10/10/2021 mammogram, and 09/26/2020 mammogram - [facility]. Both breasts are heterogeneously dense, which may obscure small masses (category c / 51-75% glandular tissue). Current study was also evaluated with a Computer Aided Detection (CAD) system. There are benign post operative findings in the left breast. No significant masses, calcifications, or other findings are seen in either breast. There has been no significant interval change. IMPRESSION: BENIGN There is no mammographic evidence of malignancy. A 1 year screening mammogram is recommended. This exam was interpreted at Station ID: [id number]. NOTE: For mammograms, a report in lay terms will be sent to the patient. Approximately 15% of breast malignancies will not be visualized mammographically. In the management of a palpable breast mass, a negative mammogram must not discourage biopsy of a clinically suspicious lesion. Electronically Signed By: Molina garcia/scout:12/13/2023 16:19:14 letter sent: Normal Exam ACR BI-RADS Category 2: Benign Finding(s) 3342F
== END ==
LOC: MAMMO 11:04
PROVIDERS: Family Provider Specialist; PCP Internal Medicine; Referring Provider Internal Medicine; Visit Provider Internal Medicine
DX: Z12.31 Encounter for screening mammogram for malignant neoplasm of breast (principal); Z85.3 Personal history of malignant neoplasm of breast; R92.333 Mammographic heterogeneous density, bilateral breasts
CPT/HCPCS: 77063; 77067

== ENCOUNTER → 2024-03-11 07:55 | Outpatient (CLI) | payer MEDICARE, OTHER, SELFPAY ==
[2024-03-11 09:26] LABS: Alanine Aminotransferase 14 IU/L (<35); Albumin 4.3 g/dL (3.5-5.0); Albumin Globulin Ratio 1.5 (1.0-2.8); Alkaline Phosphatase 73 U/L (38-126); Aspartate Aminotransferase 28 IU/L (14-36); BUN Creatinine Ratio 21.1 (6-22); Bilirubin Total 0.5 mg/dL (0.2-1.3); Blood Urea Nitrogen 19 mg/dL (7-17); Calcium 9.6 mg/dL (8.4-10.2); Carbon Dioxide 31 mmol/L (22-32); Chloride 106 mmol/L (98-107); Estimated Glomerular Filt Rate > 60 mL/min (>60); Globulin 2.8 g/dL (1.7-4.1); Glucose 81 mg/dL (80-110); HEMOLYSIS < 15 (0-50); Potassium 5.1 mmol/L (3.4-5.1); Sodium 138 mmol/L (137-145); Total Protein 7.1 g/dL (6.3-8.2)
[2024-03-14 07:40] LABS: Parathyroid Hormone Int 27 pg/mL (15-65)
== END ==
LOC: LAB 07:57
PROVIDERS: Family Provider Specialist; PCP Internal Medicine; Referring Provider Internal Medicine; Visit Provider Internal Medicine
DX: M81.0 Age-related osteoporosis without current pathological fracture (principal); E55.9 Vitamin D deficiency, unspecified
CPT/HCPCS: 36415; 80053; 82306; 83970

== ENCOUNTER → 2024-07-09 10:11 | Outpatient (CLI) | payer MEDICARE, OTHER, SELFPAY | PROVIDERS: Family Provider Specialist; PCP Internal Medicine; Visit Provider Registered Nurse | DX: R30.0 Dysuria (principal) | CPT/HCPCS: 87077; 87086; 87186 ==

== ENCOUNTER → 2025-02-03 08:09 | Outpatient (CLI) | payer MEDICARE, OTHER, SELFPAY ==
--- NOTE | 2025-02-03 08:23 | DI.MG.S_ITS ---
MM screening mammo BI: 02/03/2025. BI-RADS: 2 CLINICAL: 74-year old female for bilateral screening mammogram. No Tyrer-Cuzick risk score calculation due to the patient's personal history of breast cancer. Patient reports a history of left breast carcinoma diagnosed at age 57. Status-post left lumpectomy with radiation therapy, chemotherapy and hormonal therapy. No first-degree family history of breast cancer. PRIOR EXAMS 12/13/2023, 10/14/2022, 10/10/2021, 09/26/2020, 09/21/2019, 09/01/2019. MAMMOGRAPHY TECHNIQUE: 2D and 3D (tomosynthesis) digital mammographic views obtained, with additional images as needed for full coverage. Current study was also evaluated with a Computer Aided Detection (CAD) system. DENSITY C. The breasts are heterogeneously dense, which may obscure small masses. MAMMOGRAPHY FINDINGS Right: No suspicious mass, asymmetry, microcalcification, or other abnormality seen. Left: Benign-appearing post-surgical changes noted on the left. There are no suspicious masses, calcifications, or other findings in the breast. IMPRESSION: Right * No evidence of malignancy. Left * No evidence of malignancy with benign findings. RECOMMENDATIONS Bilateral * Annual screening mammography. OVERALL ASSESSMENT CATEGORY BI-RADS-2: Benign. The [employer] recommends annual screening mammography beginning at age 40 for women with average risk of breast cancer. ELECTRONICALLY SIGNED: Molina Orosco M.D. on 02/05/2025 at 08:34:30 AM PT Interpreting Station ID: [id number]
== END ==
PROVIDERS: Family Provider Specialist; PCP Internal Medicine; Referring Provider Internal Medicine; Visit Provider Internal Medicine
DX: Z12.31 Encounter for screening mammogram for malignant neoplasm of breast (principal); Z85.3 Personal history of malignant neoplasm of breast; R92.333 Mammographic heterogeneous density, bilateral breasts
CPT/HCPCS: 77063; 77067

== ENCOUNTER → 2025-08-14 09:32 | Outpatient (CLI) | payer MEDICARE, OTHER, SELFPAY ==
[2025-08-14 10:00] LABS: Hematocrit 37.5 % (36-46); Hemoglobin 12.9 g/dL (12.0-16.0); Mean Corpuscular HGB Conc 34.5 % (30-36); Mean Corpuscular Hemoglobin 31.9 PG (26-34); Mean Corpuscular Volume 92.5 fL (80-100); Platelet Count 310 X10^3/uL (150-400)
[2025-08-14 10:27] LABS: Blood Urea Nitrogen 19 mg/dL (7-17); Calcium 9.6 mg/dL (8.4-10.2); Carbon Dioxide 28 mmol/L (22-32); Chloride 105 mmol/L (98-107); Cholesterol 189 mg/dL (140-199); Estimated Glomerular Filt Rate > 60 mL/min (>60); Glucose 101 mg/dL (70-99); HEMOLYSIS < 15 (0-50); Potassium 4.4 mmol/L (3.4-5.1); Sodium 138 mmol/L (137-145); Triglycerides 90 mg/dL (35-150)
[2025-08-14 10:46] LABS: HDL Cholesterol 120 mg/dL (40-60)
[2025-08-14 10:56] LABS: TSH w/ Reflex to FT4 4.53 uIU/mL (0.47-4.68)
== END ==
PROVIDERS: PCP Internal Medicine; Referring Provider Internal Medicine; Visit Provider Internal Medicine
DX: E78.2 Mixed hyperlipidemia (principal); M81.0 Age-related osteoporosis without current pathological fracture; Z85.3 Personal history of malignant neoplasm of breast
CPT/HCPCS: 36415; 80048; 80061; 84443; 84450; 85027

== ENCOUNTER → 2025-08-20 11:09 | Outpatient (CLI) | payer MEDICARE, OTHER, SELFPAY ==
--- NOTE | 2025-08-20 11:14 | DI.RAD.S_ITS ---
PROCEDURE: XR DEXA AXIAL SKELETON INDICATIONS: Osteoperosis screening COMPARISON: [facility], CR, XR DEXA AXIAL SKELETON, 04/01/2023, 10:04. FINDINGS: Lumbar Spine: Bone mineral density 0.701 g/cm2, T score -3.1. There is interval 0.2% increase in total lumbar spine bone mineral density. Left Femoral Neck: Bone mineral density 0.532 g/cm2, T score -2.9. There is interval 1.5% decrease in left femoral neck bone mineral density. Left Hip: Bone mineral density 0.632 g/cm2, T score -2.5. There is interval 1.8% decrease in total left hip bone mineral density. Fracture Risk Calculation (when applicable): 10-year fracture risk of a major osteoporotic fracture 35 percent and of a hip fracture 25 percent. (T score greater or equal to -1.0 to: NORMAL) (T score from -1.1 to -2.4: OSTEOPENIA) (T score less than or equal to -2.5: OSTEOPOROSIS) IMPRESSION: Osteoporosis as above. Follow-up guidelines as follows: Osteoporosis: Consider a repeat DEXA and Vertebral Fracture Assessment (VFA) exam in 2 years or sooner if medically necessary, to reassess this patient's status. Osteopenia: Consider a repeat DEXA in 2-3 years to reassess this patient's status, or if there is a new clinical indication. Normal: Consider a repeat DEXA in 5 years or sooner, or if there is a new clinical indication. All treatment decisions require clinical judgment and consideration of individual patient factors, including patient preferences, comorbidities, previous drug use, risk factors not captured in the FRAX model (e.g., frailty, falls, vitamin D deficiency, increased bone turnover, interval significant decline in bone density ) and possible under- or over-estimation of fracture risk by FRAX. In addition, the NOF Guide recommends that FDA-approved medical therapies be considered in postmenopausal women and men age >= 50 years with a: * Hip or vertebral (clinical or morphometric) fracture * T-score of <=-2.5 at the spine or hip * Ten-year fracture probability by FRAX of >= 3% for hip fracture or >=20% for major osteoporotic fracture. Dictated by: Forrest Kwong M.D. on 08/20/2025 at 13:37 Approved by: Forrest Kwong M.D. on 08/20/2025 at 13:38
== END ==
LOC: RAD 11:12
PROVIDERS: PCP Internal Medicine; Referring Provider Internal Medicine; Visit Provider Internal Medicine
DX: M81.0 Age-related osteoporosis without current pathological fracture (principal)
CPT/HCPCS: 77080

== ENCOUNTER → 2025-08-29 08:35 | Outpatient (CLI) | payer MEDICARE, OTHER, SELFPAY ==
--- NOTE | 2025-08-29 08:37 | DI.RAD.S_ITS ---
PROCEDURE: XR LUMBAR SPINE 2-3V INDICATIONS: back pain, hx breast cancer TECHNIQUE: 3 views of the lumbar spine were acquired. COMPARISON: [facility], CR, XR DEXA AXIAL SKELETON, 04/01/2023, 10:04. 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 There are small rib list at T12. Right lumbar curvature. Diffuse osseous demineralization. T12 compression deformity which results in approximate 50 percent anterior and central vertebral body height loss. Multilevel mild facet arthrosis throughout the lumbar spine. Soft tissues: Overlying bowel gas pattern is normal. No suspicious soft tissue calcifications. IMPRESSION: T12 compression deformity results in approximately 50 percent anterior and central vertebral body height loss. Given patient's history of malignancy, recommend further evaluation with MRI of the lumbar spine with and without contrast. Dictated by: Michael Martin M.D. on 08/29/2025 at 9:23 Approved by: Michael Martin M.D. on 08/29/2025 at 9:26
== END ==
PROVIDERS: PCP Internal Medicine; Referring Provider Internal Medicine; Visit Provider Internal Medicine
DX: S39.012D Strain of muscle, fascia and tendon of lower back, subsequent encounter (principal); M47.816 Spondylosis without myelopathy or radiculopathy, lumbar region; M81.0 Age-related osteoporosis without current pathological fracture; Z85.3 Personal history of malignant neoplasm of breast
CPT/HCPCS: 72100

== ENCOUNTER → 2025-09-05 16:07 | Outpatient (CLI) | payer MEDICARE, OTHER, SELFPAY ==
--- NOTE | 2025-09-05 16:09 | DI.MRI.S_ITS ---
PROCEDURE: MR LUMBAR SPINE WO/W CON INDICATIONS: f/u lumbar XRay 08/29 TECHNIQUE: Noncontrast sagittal T1 spin echo and T2 fast echo, sagittal STIR, and T2 fast spin echo through the lumbar spine. In cases with scoliosis, additional coronal T2 fast spin echo may be performed. COMPARISON: [facility], CR, XR LUMBAR SPINE 2-3V, 08/29/2025, 8:31. FINDINGS: Image quality: Excellent. Alignment and Curvature: There is trace retrolisthesis of T12 on L1, L1 on L2, L5 on S1.. Bone Marrow: There is a 44% compression deformity at L1 predominantly at the superior endplate. There is increased T2 and hypo intense T1 signal. This is unchanged compared to prior exam. Superior endplate deformity is present at T11 appearing chronic. Spinal Cord: Conus medullaris terminates at the L2 level. Visualized cord demonstrates normal signal and size. Paraspinous Soft Tissues: No paravertebral masses. Discs: Multilevel overall mild disc desiccation. T12-L1: Minimal disc bulge without spinal stenosis or foraminal narrowing. L1-L2: No disc bulge, spinal stenosis or foraminal narrowing. L2-L3: No disc bulge, spinal stenosis or foraminal narrowing. L3-L4: Minimal disc bulge without spinal stenosis. Mild bilateral foraminal narrowing with facet and ligamentum flavum hypertrophy. Minimal epidural lipomatosis. L4-L5: Mild disc bulge without spinal stenosis. Moderate bilateral foraminal narrowing with facet and ligamentum flavum hypertrophy. L5-S1: Mild disc bulge without spinal stenosis. Moderate right and [id number] left foraminal narrowing with facet and ligamentum flavum hypertrophy. IMPRESSION: Acute/subacute 44% compression deformity at L1. Chronic compression deformity at T11. Overall [id number] foraminal narrowing most prominent L4-5 secondary to facet/ligamentum flavum arthropathy. Dictated by: Ghazala Gonzalez M.D. on 09/06/2025 at 10:04 Approved by: Ghazala Gonzalez M.D. on 09/06/2025 at 10:10
== END ==
LOC: MRI 16:08
PROVIDERS: PCP Internal Medicine; Referring Provider Internal Medicine; Visit Provider Internal Medicine
DX: M81.0 Age-related osteoporosis without current pathological fracture (principal); R93.7 Abnormal findings on diagnostic imaging of other parts of musculoskeletal system; M48.061 Spinal stenosis, lumbar region without neurogenic claudication; M47.816 Spondylosis without myelopathy or radiculopathy, lumbar region; M47.817 Spondylosis without myelopathy or radiculopathy, lumbosacral region; M48.07 Spinal stenosis, lumbosacral region; M43.8X5 Other specified deforming dorsopathies, thoracolumbar region
CPT/HCPCS: 72158; A9579